=== PATIENT | male | born 1965 | race Caucasian/White ===

== ENCOUNTER 2017-03-26 09:13 | Inpatient (IN) | payer OTHER ==
[2017-03-26 11:00] VITALS: BMI 28.8
--- NOTE | 2017-03-26 13:30 | HP ---
COWS - Scale Resting Pulse: 0= [place] 80 or Below Sweatin= Chills/Flushing Restless Observation: 3= Extraneous Movement Pupil Size: 2= Moderately Dilated Bone or Joint Aches: 4=Acute Joint/Muscle Pain Runny Nose/ Eye Tearin= Nasal Congestion GI Upset > 30mins: 1= Stomach Cramp Tremor Observation: 2= Slight Tremor Visible Yawning Observation: 2= >3x During Session Anxiety or Irritability: 2=Irritable/Anxious Goose Flesh Skin: 0=Smooth Skin COWS Score: 18 Admission ROS S - HPI Chief Complaint: DETOX TX FOR HEROIN DEPENDENCE. Allergies/Adverse Reactions: Allergies Allergy/AdvReac Type Severity Reaction Status Date / Time No Known Allergies Allergy Verified 03/26/17 12:08 History of Present Illness: 51 Y/O MALE WITH A HX OF HEROIN DEPENDENCE SEEKING DETOX [place] Exam Limitations: No Limitations - Ebola screening Have you traveled outside of the country in the last 21 days: No Have you had contact with anyone from an Ebola affected area: No Have you been sick,other than usual withdrawal symptoms: No Do you have a fever: No - Review of Systems Constitutional: Chills, Loss of Appetite, Night Sweats, Unintentional Wgt. Loss EENT: reports: Blurred Vision, Tearing, Nose Congestion, Dental Problems (UPPER/ LOWER DENTURES.) Respiratory: reports: No Symptoms reported Cardiac: reports: Lightheadedness GI: reports: Constipated, Diarrhea, Nausea, Poor Appetite, Poor Fluid Intake, Vomiting : reports: Frequency Musculoskeletal: reports: Back Pain, Joint Pain, Muscle Pain Integumentary: reports: Bruising (IVD INJ SITE ON RIGHT ELBOW.), Change in Color (HEALED SKIN POP SCARS ON BOTH EXTREMITIES.) Neuro: reports: Tremors, Unsteady Gait, Dizziness Endocrine: reports: No Symptoms Reported Hematology: reports: No Symptoms Reported Psychiatric: reports: Orientated x3, Anxious, Depressed Other Systems: Reviewed and Negative Patient History - Patient Medical History Hx Anemia: No Hx Asthma: No Hx Chronic Obstructive Pulmonary Disease (COPD): Yes (SPIRIVA DAILY) Hx Cardiac Disorders: No Hx Hypertension: Yes (on meds.) Hx Hypercholesterolemia: No HX Cerebrovascular Accident: No Hx Seizures: No Hx Diabetes: No Hx Gastrointestinal Disorders: No Hx Genitourinary Disorders: No Hx Sexually Transmitted Disorders: No (DENIES) Hx Renal Disease (ESRD): No Hx Thyroid Disease: No Hx Human Immunodeficiency Virus (HIV): No (NEGATIVE HX) Hx Hepatitis C: Yes (TREATED) Hx Depression: Yes (ON MED) Hx Suicide Attempt: No (DENIES) Hx Bipolar Disorder: No Hx Schizophrenia: No - Patient Surgical History Past Surgical History: Yes Hx Abdominal Surgery: Yes (umbillical hernia repair 10 years ago) Hx Appendectomy: Yes (AT 15 Y/O) Hx Orthopedic Surgery: No Anesthesia Reaction: No - PPD History Previous Implant?: Yes Documented Results: Negative w/o proof Implanted On Prior [facility] Admission?: No PPD to be Administered?: Yes - Reproductive History Patient is a Female of Child Bearing Age (11 -55 yrs old): (MALE) Patient : (N/A) - Smoking Cessation Smoking history: Current every day smoker Have you smoked in the past 12 months: Yes Aproximately how many cigarettes per day: 20 Hx Chewing Tobacco Use: No Initiated information on smoking cessation: Yes 'Breaking Loose' booklet given: 03/26/17 - Substance & Tx. History Hx Alcohol Use: Yes (ON/OFF) Hx Substance Use: Yes (HEROIN) Substance Use Type: Alcohol, Heroin Hx Substance Use Treatment: Yes (LAST TX AT [facility].) - Substances Abused Heroin Route: Injection Frequency: Daily Amount used: 12 bags Age of first use: 14 Date of Last Use: 03/25/17 Family Disease History - Family Disease History Family History: Denies Admission Physical Exam BHS - Vital Signs Vital Signs: Vital Signs - 24 hr 03/26/17 10:58 Temperature 96.5 F L Pulse Rate 76 Respiratory 18 Rate Blood Pressure 135/76 - Physical General Appearance: Yes: Moderate Distress, Irritable, Anxious HEENTM: Yes: EOMI, Normocephalic, ALTAGRACIA, Pharynx Normal, Nasal Congestion, Rhinorrhea Respiratory: Yes: Chest Non-Tender, Lungs Clear, Normal Breath Sounds, No Respiratory Distress Neck: Yes: No masses,lesions,Nodules, Supple, Trachea in good position Breast: Yes: Breast Exam Deferred Cardiology: Yes: Regular Rhythm, Regular Rate, S1, S2 Abdominal: Yes: Normal Bowel Sounds, Non Tender, Soft Genitourinary: Yes: Other (N/C) Musculoskeletal: Yes: full range of Motion, Gait Steady Extremities: Yes: Normal Range of Motion, Non-Tender Neurological: Yes: 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-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 NML intact, Fully Oriented, Alert, Motor Strength 5/5 Integumentary: Yes: Dry, Warm, Track [place] (IVD INJ SITE RIGHT ELBOW) Lymphatic: Yes: Within Normal Limits - Diagnostic (1) Opioid dependence with withdrawal Current Visit: Yes Status: Acute (2) COPD (chronic obstructive pulmonary disease) Current Visit: Yes Status: Chronic (3) Hypertension Current Visit: Yes Status: Chronic Qualifiers: Hypertension type: essential hypertension Qualified Code(s): I10 - Essential (primary) hypertension Cleared for Admission S - Detox or Rehab [facility] Level of Care: Medically Managed Detox Regimen/Protocol: Methadone [facility] Breath Alcohol Content Breath Alcohol Content: 0 Urine Drug Screen - Results Drug Screen Negative: No Urine Drug Screen Results: OPI-Opiates
[2017-03-26] MEDS ORDERED: MAGNESIUM HYDROX 2400MG/30ML ORAL SUSPENSION 30 ML CUP PO PRN (13:41)
[2017-03-26] MEDS ORDERED: NICOTINE POLACRILEX 2 MG GUM BC PRN (13:41)
[2017-03-26] MEDS ORDERED: guaiFENesin/D-METHORPHAN HB 10 ML UNIT-DOSE CUPS PO PRN (13:41)
[2017-03-26] MEDS ORDERED: MAGNESIUM CITRATE 300 ML BOTTLE PO PRN (13:41)
[2017-03-26] MEDS ORDERED: IBUPROFEN 400 MG TABLET (FP) PO PRN (13:41)
[2017-03-26] MEDS ORDERED: P-EPHED 60MG/TRIPROLIDI 2.5MG TABLET PO PRN (13:41)
[2017-03-26] MEDS ORDERED: ACETAMINOPHEN 325 MG TABLET (FP) PO PRN (13:41)
[2017-03-26] MEDS ORDERED: MENTHOL/PHENOL 1 EACH UD MM PRN (13:41)
[2017-03-26] MEDS ORDERED: TIOTROPIUM BROMIDE 18 MCG/INH (DEVICE W/ 5 CAPSULES) IH SCH (13:45)
[2017-03-26] MEDS ORDERED: NICOTINE 14 MG/24 HOURS TOPICAL PATCH TD SCH (13:45)
[2017-03-26] MEDS ORDERED: NICOTINE POLACRILEX 2 MG GUM BUC PRN (13:47)
[2017-03-26] MEDS ORDERED: METHADONE HCL 10 MG TABLET (FOR DETOX USE ONLY) PO ONE ×2 (13:49→23:00)
[2017-03-26] MEDS: diazePAM 5 MG TABLET PO PRN ×2 (14:31→20:45)
[2017-03-26] MEDS ORDERED: ALBUTEROL SO4 6.7 GM HFA INHALER IH PRN (15:41)
[2017-03-26 21:59] LABS: URINE APPEARANCE TURBID; URINE BILIRUBIN NEGATIVE (NEGATIVE); URINE BLOOD NEGATIVE (NEGATIVE); URINE COLOR AMBER; URINE GLUCOSE (UA) NEGATIVE (NEGATIVE); URINE KETONE NEGATIVE (NEGATIVE); URINE LEUK ESTERASE NEGATIVE (NEGATIVE); URINE NITRITE NEGATIVE (NEGATIVE)
[2017-03-26 22:05] LABS: URINE PROTEIN 1+ (NEGATIVE)
[2017-03-26] MEDS: THIAMINE HCL 100 MG TABLET (FP) PO SCH (22:10)
[2017-03-26] MEDS: diphenhydrAMINE HCL 50 MG CAPSULE PO PRN (22:10)
[2017-03-26] MEDS: ACLIDINIUM BROMIDE 400 MCG/INH AERO.POWD IH SCH (22:11)
[2017-03-26 22:14] LABS: URINE BACTERIA RARE /hpf (NONE SEEN); URINE HYALINE CAST 4 /lpf; URINE MUCUS MANY; URINE RBC 3 /hpf (0-3); URINE WBC 12 /hpf (3-5)
[2017-03-27] MEDS ORDERED: TRIMETHOBENZAMIDE HCL 200MG/2ML INJ IM PRN ×2 (05:55→08:50)
[2017-03-27] MEDS: diazePAM 5 MG TABLET PO PRN ×4 (07:08→22:40)
--- NOTE | 2017-03-27 08:45 | CONSULT ---
[facility] Psychiatric Consult - Data Date of interview: 03/27/17 Admission source: [facility] Identifying data: This is a 51 year old male, domiciled, employed Substance Abuse History: Patient reports started heroin at age of 14, daily injecting 10-15 bags, smokes cigarettes 20 a day. Treatment at [facility]. Medical History: HTN, Hep C, COPD, emphysema,umbillical hernia repair 10 years ago, appendectomy. Psychiatric History: Patient reports history of depression, anxiety and sees the psychiatrist who Rx Zoloft 100 mg po daily, patient at present time does no feel well, he is acutely withdrawing, he was in bed throwing, sweating and the writter was not able to continue evaluatiion, due to this Zoloft not recommended and he will restart when feels better. Patient agreed with careplan. Mental Status Exam - Mental Status Exam Alert and Oriented to: Place, Person Cognitive Function: Grossly Intact Patient Appearance: Well Groomed Mood: Anxious Affect: Mood Congruent Patient Behavior: Appropriate, Cooperative Speech Pattern: Appropriate Voice Loudness: Normal Thought Process: Intact Thought Disorder: Not Present Hallucinations: Denies Suicidal Ideation: Denies Homicidal Ideation: Denies Insight/Judgement: Fair Sleep: Fair Appetite: Fair Muscle strength/Tone: Normal Gait/Station: Normal Psychiatric Findings - Problem List ([place] 1, 2,3) (1) Depressive disorder Current Visit: Yes Status: Acute - Initial Treatment Plan Initial Treatment Plan: will continue detox. protocol, please call for consult when patient feels better.
[2017-03-27] MEDS ORDERED: METHADONE DETOX 10 MG/1 ML [20ML VIAL] IM ONE (09:00)
[2017-03-27] MEDS ORDERED: METHADONE HCL 10 MG TABLET (FOR DETOX USE ONLY) PO ONE (10:00)
[2017-03-27 10:36] LABS: MCH 31.2 pg (25.7-33.7); MCHC 33.9 g/dl (32.0-35.9); MEAN PLT VOLUME 7.9 fl (7.5-11.1); PLATELET COUNT 312 K/MM3 (134-434); RDW 13.9 % (11.9-15.9); WHITE BLOOD COUNT 8.2 K/mm3 (4.0-10.0)
[2017-03-27 10:45] LABS: ANION GAP 5 (8-16); BILIRUBIN,TOTAL 0.6 mg/dL (0.2-1.0); CALCIUM 9.2 mg/dL (8.5-10.1); CO2 34 mmol/L (21-32); CREATININE 0.9 mg/dL (0.7-1.3); GLUCOSE,RANDOM 94 mg/dL (74-106); SGOT/AST 30 U/L (15-37); SGPT/ALT 29 U/L (12-78); TOT PROT 6.4 g/dl (6.4-8.2)
[2017-03-27 10:46] LABS: ALK PHOS 115 U/L (45-117)
[2017-03-27] MEDS: PRENATAL VITAMINS W/ FOLIC ACID TABLET (FP) PO SCH (12:01)
[2017-03-27] MEDS: NICOTINE 14 MG/24 HOURS TOPICAL PATCH TD SCH (12:01)
[2017-03-27] MEDS: ACLIDINIUM BROMIDE 400 MCG/INH AERO.POWD IH SCH ×2 (12:01→22:40)
[2017-03-27] MEDS: LOSARTAN POTASSIUM 50 MG TABLET (FP) PO SCH (13:40)
[2017-03-27] MEDS: MAG HYDROX/AL HYDROX/SIMETH 30 ML UNIT-DOSE CUP PO PRN (15:54)
--- NOTE | 2017-03-27 16:09 | PN ---
BHS COWS - Scale Resting Pulse: 0= [place] 80 or Below Sweatin=Flushed/Facial Moisture Restless Observation: 1= Difficult to Sit Still Pupil Size: 0= Normal to Room Light Bone or Joint Aches: 2= Severe Diffuse Aches Runny Nose/ Eye Tearin= Runny Nose/Eyes GI Upset > 30mins: 5=Frequent Vomit/Diarrhea Tremor Observation of Outstretched Hands: 2= Slight Tremor Visible Yawning Observation: 0= None Anxiety or Irritability: 4=Extreme Anxiety Goose Flesh Skin: 0=Smooth Skin COWS Score: 18 BHS Progress Note (SOAP) Subjective: Vomiting, Stomach Cramping, Diarrhea, Interrupted sleep, Body Aches. Objective: PT. A & O X 3, OBSERVED AMBULATING ON UNIT. PT. DENIES CHEST PAIN. 03/27/17 16:08 Vital Signs Temperature 96.7 F L 03/27/17 13:51 Pulse Rate 60 03/27/17 13:51 Respiratory Rate 18 03/27/17 13:51 Blood Pressure 158/84 03/27/17 13:51 O2 Sat by Pulse Oximetry (%) Laboratory Tests 03/26/17 03/27/17 03/27/17 21:00 06:15 06:15 WBC 8.2 RBC 3.92 L Hgb 12.2 Hct 36.0 MCV 92.0 MCH 31.2 MCHC 33.9 RDW 13.9 Plt Count 312 MPV 7.9 Sodium 137 Potassium 3.3 L Chloride 98 Carbon Dioxide 34 H Anion Gap 5 L BUN 18 Creatinine 0.9 Creat Clearance w eGFR > 60 Random Glucose 94 Calcium 9.2 Total Bilirubin 0.6 AST 30 ALT 29 Alkaline Phosphatase 115 Total Protein 6.4 Albumin 3.0 L Urine Color [place] Urine Appearance Turbid Urine pH 5.0 Ur Specific [place] 1.020 Urine Protein 1+ H Urine Glucose (UA) Negative Urine Ketones Negative Urine Blood Negative Urine Nitrite Negative Urine Bilirubin Negative Urine Urobilinogen 2.0 Ur Leukocyte Esterase Negative Urine RBC 3 Urine WBC 12 Ur Epithelial Cells Rare Urine Bacteria Rare Hyaline Casts 4 Urine Mucus Many RPR Titer 03/27/17 06:15 WBC RBC Hgb Hct MCV MCH MCHC RDW Plt Count MPV Sodium Potassium Chloride Carbon Dioxide Anion Gap BUN Creatinine Creat Clearance w eGFR Random Glucose Calcium Total Bilirubin AST ALT Alkaline Phosphatase Total Protein Albumin Urine Color Urine Appearance Urine pH Ur Specific [place] Urine Protein Urine Glucose (UA) Urine Ketones Urine Blood Urine Nitrite Urine Bilirubin Urine Urobilinogen Ur Leukocyte Esterase Urine RBC Urine WBC Ur Epithelial Cells Urine Bacteria Hyaline Casts Urine Mucus RPR Titer Nonreactive LABS NOTED. Assessment: 03/27/17 16:08 WITHDRAWAL SYMPTOMS. Plan: CONTINUE DETOX. K, LIQUID FORM, 20 MEQ PO X 1 NOW, THEN PO BID AFTER. THIS AM'S DOSE OF METHADONE (DETOX) ADMINISTERED IN IM FORM DUE TO FREQUENT VOMITING. PRN TIGAN IM FOR NAUSEA/ VOMITING.
[2017-03-27] MEDS ORDERED: POTASSIUM CHLORIDE TABS 20 MEQ TABLET.ER (FP) PO ONE (16:10)
[2017-03-27] MEDS: diphenhydrAMINE HCL 50 MG CAPSULE PO PRN (22:40)
[2017-03-27] MEDS: POTASSIUM CHLORIDE ORAL LIQUID 20 MEQ/15 ML PO SCH (22:40)
[2017-03-27] MEDS: THIAMINE HCL 100 MG TABLET (FP) PO SCH (22:40)
[2017-03-27] MEDS: LOPERAMIDE HCL 2 MG CAPSULE PO PRN (23:01)
[2017-03-28] MEDS: diazePAM 5 MG TABLET PO PRN ×4 (06:08→22:25)
[2017-03-28] MEDS ORDERED: METHADONE HCL 5 MG TABLET (FOR DETOX USE ONLY) PO ONE (10:00)
[2017-03-28] MEDS: PRENATAL VITAMINS W/ FOLIC ACID TABLET (FP) PO SCH (10:36)
[2017-03-28] MEDS: NICOTINE 14 MG/24 HOURS TOPICAL PATCH TD SCH (10:37)
[2017-03-28] MEDS: LOSARTAN POTASSIUM 50 MG TABLET (FP) PO SCH (10:38)
[2017-03-28] MEDS: ACLIDINIUM BROMIDE 400 MCG/INH AERO.POWD IH SCH ×2 (10:39→22:25)
[2017-03-28] MEDS: LOPERAMIDE HCL 2 MG CAPSULE PO PRN (10:43)
[2017-03-28] MEDS ORDERED: ONDANSETRON *ODT* 4 MG TABLET SL ONE (11:35)
[2017-03-28] MEDS: POTASSIUM CHLORIDE ORAL LIQUID 20 MEQ/15 ML PO SCH ×2 (14:06→22:26)
--- NOTE | 2017-03-28 14:56 | PN ---
S COWS - Scale Resting Pulse: 0= [place] 80 or Below Sweatin= Chills/Flushing Restless Observation: 3= Extraneous Movement Pupil Size: 1= Pupils >than Normal Bone or Joint Aches: 2= Severe Diffuse Aches Runny Nose/ Eye Tearin= Runny Nose/Eyes GI Upset > 30mins: 2= Nausea/Diarrhea Tremor Observation of Outstretched Hands: 2= Slight Tremor Visible Yawning Observation: 1= 1-2x During Session Anxiety or Irritability: 2=Irritable/Anxious Goose Flesh Skin: 0=Smooth Skin COWS Score: 16 S Progress Note (SOAP) Subjective: Nausea, diarrhea, interrupted sleep, anxious, sweating Objective: 03/28/17 14:53 Last Vital Signs Temp Pulse Resp BP Pulse Ox 98.4 F 71 18 157/91 03/28/17 13:46 03/28/17 13:46 03/28/17 13:46 03/28/17 13:46 Laboratory Tests 03/26/17 03/27/17 03/27/17 21:00 06:15 06:15 WBC 8.2 RBC 3.92 L Hgb 12.2 Hct 36.0 MCV 92.0 MCH 31.2 MCHC 33.9 RDW 13.9 Plt Count 312 MPV 7.9 Sodium 137 Potassium 3.3 L Chloride 98 Carbon Dioxide 34 H Anion Gap 5 L BUN 18 Creatinine 0.9 Creat Clearance w eGFR > 60 Random Glucose 94 Calcium 9.2 Total Bilirubin 0.6 AST 30 ALT 29 Alkaline Phosphatase 115 Total Protein 6.4 Albumin 3.0 L Urine Color [place] Urine Appearance Turbid Urine pH 5.0 Ur Specific [place] 1.020 Urine Protein 1+ H Urine Glucose (UA) Negative Urine Ketones Negative Urine Blood Negative Urine Nitrite Negative Urine Bilirubin Negative Urine Urobilinogen 2.0 Ur Leukocyte Esterase Negative Urine RBC 3 Urine WBC 12 Ur Epithelial Cells Rare Urine Bacteria Rare Hyaline Casts 4 Urine Mucus Many RPR Titer 03/27/17 06:15 WBC RBC Hgb Hct MCV MCH MCHC RDW Plt Count MPV Sodium Potassium Chloride Carbon Dioxide Anion Gap BUN Creatinine Creat Clearance w eGFR Random Glucose Calcium Total Bilirubin AST ALT Alkaline Phosphatase Total Protein Albumin Urine Color Urine Appearance Urine pH Ur Specific [place] Urine Protein Urine Glucose (UA) Urine Ketones Urine Blood Urine Nitrite Urine Bilirubin Urine Urobilinogen Ur Leukocyte Esterase Urine RBC Urine WBC Ur Epithelial Cells Urine Bacteria Hyaline Casts Urine Mucus RPR Titer Nonreactive Labs noted: K 3.3, abnormal UA Assessment: 03/28/17 14:54 Withdrawal symptoms Noted with hypokalemia and abnormal UA Plan: Continue detox Hypokalemia: continue K DUR, repeat BMP Abnormal UA: encouraged to drink lots of water, repeat UA
[2017-03-28] MEDS ORDERED: ONDANSETRON *ODT* 4 MG TABLET SL PRN (18:00)
[2017-03-28] MEDS: THIAMINE HCL 100 MG TABLET (FP) PO SCH (22:25)
[2017-03-28] MEDS: diphenhydrAMINE HCL 50 MG CAPSULE PO PRN (22:26)
[2017-03-29] MEDS: diazePAM 5 MG TABLET PO PRN ×2 (05:45→10:28)
[2017-03-29 09:56] LABS: ANION GAP 4 (8-16); CALCIUM 8.8 mg/dL (8.5-10.1); CO2 33 mmol/L (21-32); GLUCOSE,RANDOM 104 mg/dL (74-106)
[2017-03-29 09:59] LABS: CREATININE 0.8 mg/dL (0.7-1.3)
[2017-03-29] MEDS ORDERED: METHADONE HCL 5 MG TABLET (FOR DETOX USE ONLY) PO ONE (10:00)
--- NOTE | 2017-03-29 10:00 | EKG ---
Test Reason : Blood Pressure : / mmHG Vent. Rate : 071 BPM Atrial Rate : 071 BPM P-R Int : 176 ms QRS Dur : 116 ms QT Int : 450 ms P-R-T Axes : 070 077 029 degrees QTc Int : 489 ms NORMAL SINUS RHYTHM POSSIBLE LEFT ATRIAL ENLARGEMENT INCOMPLETE RIGHT BUNDLE BRANCH BLOCK T WAVE ABNORMALITY, CONSIDER ANTERIOR ISCHEMIA ABNORMAL ECG NO PREVIOUS ECGS AVAILABLE Confirmed by SREEDHAR CASTRO MD ([id number]) on 03/29/2017 9:59:47 AM Referred By: Confirmed By:SREEDHAR CASTRO MD
[2017-03-29] MEDS: PRENATAL VITAMINS W/ FOLIC ACID TABLET (FP) PO SCH (10:25)
[2017-03-29] MEDS: ACLIDINIUM BROMIDE 400 MCG/INH AERO.POWD IH SCH ×2 (10:26→22:25)
[2017-03-29] MEDS: LOSARTAN POTASSIUM 50 MG TABLET (FP) PO SCH (10:28)
[2017-03-29] MEDS: POTASSIUM CHLORIDE ORAL LIQUID 20 MEQ/15 ML PO SCH ×2 (10:28→22:24)
[2017-03-29] MEDS: NICOTINE 14 MG/24 HOURS TOPICAL PATCH TD SCH (10:28)
--- NOTE | 2017-03-29 14:36 | PN ---
BHS Progress Note (SOAP) Subjective: Sweating,interrupted sleep,restless Objective: 03/29/17 14:35 Vital Signs - 8 hr 03/29/17 03/29/17 03/29/17 07:35 09:26 13:25 Temperature 98.0 F 97.6 F Pulse Rate 62 94 H 62 Respiratory 16 16 Rate Blood Pressure 161/97 163/95 158/84 Laboratory Last Values WBC 8.2 K/mm3 (4.0-10.0) 03/27/17 06:15 RBC 3.92 M/mm3 (4.00-5.60) L 03/27/17 06:15 Hgb 12.2 GM/dL (11.7-16.9) 03/27/17 06:15 Hct 36.0 % (35.4-49) 03/27/17 06:15 MCV 92.0 fl (80-96) 03/27/17 06:15 MCH 31.2 pg (25.7-33.7) 03/27/17 06:15 MCHC 33.9 g/dl (32.0-35.9) 03/27/17 06:15 RDW 13.9 % (11.9-15.9) 03/27/17 06:15 Plt Count 312 K/MM3 (134-434) 03/27/17 06:15 MPV 7.9 fl (7.5-11.1) 03/27/17 06:15 Sodium 137 mmol/L (136-145) 03/29/17 06:30 Potassium 3.8 mmol/L (3.5-5.1) 03/29/17 06:30 Chloride 100 mmol/L (98-107) 03/29/17 06:30 Carbon Dioxide 33 mmol/L (21-32) H 03/29/17 06:30 Anion Gap 4 (8-16) L 03/29/17 06:30 BUN 15 mg/dL (7-18) 03/29/17 06:30 Creatinine 0.8 mg/dL (0.7-1.3) 03/29/17 06:30 Creat Clearance w eGFR > 60 (>60) 03/27/17 06:15 Random Glucose 104 mg/dL (74-106) 03/29/17 06:30 Calcium 8.8 mg/dL (8.5-10.1) 03/29/17 06:30 Total Bilirubin 0.6 mg/dL (0.2-1.0) 03/27/17 06:15 AST 30 U/L (15-37) 03/27/17 06:15 ALT 29 U/L (12-78) 03/27/17 06:15 Alkaline Phosphatase 115 U/L (45-117) 03/27/17 06:15 Total Protein 6.4 g/dl (6.4-8.2) 03/27/17 06:15 Albumin 3.0 g/dl (3.4-5.0) L 03/27/17 06:15 Urine Color [place] 03/26/17 21:00 Urine Appearance Turbid 03/26/17 21:00 Urine pH 5.0 (5.0-8.0) 03/26/17 21:00 Ur Specific [place] 1.020 (1.005-1.025) 03/26/17 21:00 Urine Protein 1+ (NEGATIVE) H 03/26/17 21:00 Urine Glucose (UA) Negative (NEGATIVE) 03/26/17 21:00 Urine Ketones Negative (NEGATIVE) 03/26/17 21:00 Urine Blood Negative (NEGATIVE) 03/26/17 21:00 Urine Nitrite Negative (NEGATIVE) 03/26/17 21:00 Urine Bilirubin Negative (NEGATIVE) 03/26/17 21:00 Urine Urobilinogen 2.0 mg/dL (0.2-1.0) 03/26/17 21:00 Ur Leukocyte Esterase Negative (NEGATIVE) 03/26/17 21:00 Urine RBC 3 /hpf (0-3) 03/26/17 21:00 Urine WBC 12 /hpf (3-5) 03/26/17 21:00 Ur Epithelial Cells Rare /hpf (FEW) 03/26/17 21:00 Urine Bacteria Rare /hpf (NONE SEEN) 03/26/17 21:00 Hyaline Casts 4 /lpf 03/26/17 21:00 Urine Mucus Many 03/26/17 21:00 RPR Titer Nonreactive (NONREACTIVE) 03/27/17 06:15 labs noted Assessment: 03/29/17 14:36 Withdrawal sx. Plan: Continue detox
[2017-03-29 17:08] LABS: URINE APPEARANCE CLEAR; URINE BILIRUBIN NEGATIVE (NEGATIVE); URINE BLOOD NEGATIVE (NEGATIVE); URINE COLOR YELLOW; URINE GLUCOSE (UA) NEGATIVE (NEGATIVE); URINE KETONE NEGATIVE (NEGATIVE); URINE LEUK ESTERASE NEGATIVE (NEGATIVE); URINE NITRITE NEGATIVE (NEGATIVE); URINE PROTEIN NEGATIVE (NEGATIVE)
[2017-03-29] MEDS: cloNIDine HCL 0.1 MG TABLET PO PRN (20:15)
[2017-03-29] MEDS: hydrOXYzine PAMOATE 50 MG CAPSULE (FP) PO PRN (20:15)
[2017-03-29] MEDS: THIAMINE HCL 100 MG TABLET (FP) PO SCH (22:24)
[2017-03-29] MEDS: diphenhydrAMINE HCL 50 MG CAPSULE PO PRN (22:24)
[2017-03-30] MEDS: hydrOXYzine PAMOATE 50 MG CAPSULE (FP) PO PRN (05:44)
[2017-03-30] MEDS: cloNIDine HCL 0.1 MG TABLET PO PRN (05:44)
[2017-03-30] MEDS: PRENATAL VITAMINS W/ FOLIC ACID TABLET (FP) PO SCH (09:49)
[2017-03-30] MEDS: NICOTINE 14 MG/24 HOURS TOPICAL PATCH TD SCH (09:49)
[2017-03-30] MEDS: POTASSIUM CHLORIDE ORAL LIQUID 20 MEQ/15 ML PO SCH ×2 (09:49→22:09)
[2017-03-30] MEDS: LOSARTAN POTASSIUM 50 MG TABLET (FP) PO SCH (09:49)
[2017-03-30] MEDS: ACLIDINIUM BROMIDE 400 MCG/INH AERO.POWD IH SCH ×2 (09:50→22:09)
[2017-03-30] MEDS ORDERED: METHADONE HCL 10 MG TABLET (FOR DETOX USE ONLY) PO ONE (10:00)
--- NOTE | 2017-03-30 11:06 | PN ---
BHS Progress Note (SOAP) Subjective: Sweating,interrupted sleep,restless Objective: 03/30/17 11:00 Vital Signs - 8 hr 03/30/17 03/30/17 03/30/17 03:30 06:13 10:01 Temperature 97 F L 96.4 F L Pulse Rate 56 L 67 Respiratory 18 18 20 Rate Blood Pressure 158/94 125/84 Laboratory Last Values WBC 8.2 K/mm3 (4.0-10.0) 03/27/17 06:15 RBC 3.92 M/mm3 (4.00-5.60) L 03/27/17 06:15 Hgb 12.2 GM/dL (11.7-16.9) 03/27/17 06:15 Hct 36.0 % (35.4-49) 03/27/17 06:15 MCV 92.0 fl (80-96) 03/27/17 06:15 MCH 31.2 pg (25.7-33.7) 03/27/17 06:15 MCHC 33.9 g/dl (32.0-35.9) 03/27/17 06:15 RDW 13.9 % (11.9-15.9) 03/27/17 06:15 Plt Count 312 K/MM3 (134-434) 03/27/17 06:15 MPV 7.9 fl (7.5-11.1) 03/27/17 06:15 Sodium 137 mmol/L (136-145) 03/29/17 06:30 Potassium 3.8 mmol/L (3.5-5.1) 03/29/17 06:30 Chloride 100 mmol/L (98-107) 03/29/17 06:30 Carbon Dioxide 33 mmol/L (21-32) H 03/29/17 06:30 Anion Gap 4 (8-16) L 03/29/17 06:30 BUN 15 mg/dL (7-18) 03/29/17 06:30 Creatinine 0.8 mg/dL (0.7-1.3) 03/29/17 06:30 Creat Clearance w eGFR > 60 (>60) 03/27/17 06:15 Random Glucose 104 mg/dL (74-106) 03/29/17 06:30 Calcium 8.8 mg/dL (8.5-10.1) 03/29/17 06:30 Total Bilirubin 0.6 mg/dL (0.2-1.0) 03/27/17 06:15 AST 30 U/L (15-37) 03/27/17 06:15 ALT 29 U/L (12-78) 03/27/17 06:15 Alkaline Phosphatase 115 U/L (45-117) 03/27/17 06:15 Total Protein 6.4 g/dl (6.4-8.2) 03/27/17 06:15 Albumin 3.0 g/dl (3.4-5.0) L 03/27/17 06:15 Urine Color Yellow 03/29/17 13:27 Urine Appearance Clear 03/29/17 13:27 Urine pH 8.0 (5.0-8.0) D 03/29/17 13:27 Ur Specific [place] 1.015 (1.005-1.025) 03/29/17 13:27 Urine Protein Negative (NEGATIVE) 03/29/17 13:27 Urine Glucose (UA) Negative (NEGATIVE) 03/29/17 13:27 Urine Ketones Negative (NEGATIVE) 03/29/17 13:27 Urine Blood Negative (NEGATIVE) 03/29/17 13:27 Urine Nitrite Negative (NEGATIVE) 03/29/17 13:27 Urine Bilirubin Negative (NEGATIVE) 03/29/17 13:27 Urine Urobilinogen 2.0 mg/dL (0.2-1.0) 03/29/17 13:27 Ur Leukocyte Esterase Negative (NEGATIVE) 03/29/17 13:27 Urine RBC 3 /hpf (0-3) 03/26/17 21:00 Urine WBC 12 /hpf (3-5) 03/26/17 21:00 Ur Epithelial Cells Rare /hpf (FEW) 03/26/17 21:00 Urine Bacteria Rare /hpf (NONE SEEN) 03/26/17 21:00 Hyaline Casts 4 /lpf 03/26/17 21:00 Urine Mucus Many 03/26/17 21:00 RPR Titer Nonreactive (NONREACTIVE) 03/27/17 06:15 labs noted Assessment: 03/30/17 11:06 Withdrawal sx. Plan: Continue detox
[2017-03-30] MEDS: THIAMINE HCL 100 MG TABLET (FP) PO SCH (22:09)
[2017-03-30] MEDS: diphenhydrAMINE HCL 50 MG CAPSULE PO PRN (22:09)
[2017-03-31] MEDS: cloNIDine HCL 0.1 MG TABLET PO PRN (05:51)
[2017-03-31] MEDS ORDERED: METHADONE HCL 5 MG TABLET (FOR DETOX USE ONLY) PO ONE (06:00)
[2017-03-31 06:48] VITALS: TEMP 97.8
[2017-03-31] MEDS: MAG HYDROX/AL HYDROX/SIMETH 30 ML UNIT-DOSE CUP PO PRN (07:00)
[2017-03-31 07:04] VITALS: BP 133/83; PULSE 49
--- NOTE | 2017-03-31 12:06 | DS ---
[facility] Detox Discharge Summary Admission Date: 03/26/17 Discharge Date: 03/31/17 - History Present History: Opioid Dependence Additional Comments: PATIENT ELECTING TO GO HOME SO THAT HE CAN RETURN TO WORK. OUTPATIENT 12-STEP / NA OUTPATIENT PROGRAMS RECOMMENDED TO PATIENT FOR AFTERCARE. Pertinent Past History: HTN, Depression, Hep C (Treated). - Physical Exam Results Vital Signs: Vital Signs Temperature 97.8 F 03/31/17 06:47 Pulse Rate 49 L 03/31/17 07:03 Respiratory Rate 18 03/31/17 07:03 Blood Pressure 133/83 03/31/17 07:03 O2 Sat by Pulse Oximetry (%) Pertinent Admission Physical Exam Findings: WITHDRAWAL SYMPTOMS. Laboratory Tests 03/26/17 03/27/17 03/27/17 21:00 06:15 06:15 WBC 8.2 RBC 3.92 L Hgb 12.2 Hct 36.0 MCV 92.0 MCH 31.2 MCHC 33.9 RDW 13.9 Plt Count 312 MPV 7.9 Sodium 137 Potassium 3.3 L Chloride 98 Carbon Dioxide 34 H Anion Gap 5 L BUN 18 Creatinine 0.9 Creat Clearance w eGFR > 60 Random Glucose 94 Calcium 9.2 Total Bilirubin 0.6 AST 30 ALT 29 Alkaline Phosphatase 115 Total Protein 6.4 Albumin 3.0 L Urine Color [place] Urine Appearance Turbid Urine pH 5.0 Ur Specific [place] 1.020 Urine Protein 1+ H Urine Glucose (UA) Negative Urine Ketones Negative Urine Blood Negative Urine Nitrite Negative Urine Bilirubin Negative Urine Urobilinogen 2.0 Ur Leukocyte Esterase Negative Urine RBC 3 Urine WBC 12 Ur Epithelial Cells Rare Urine Bacteria Rare Hyaline Casts 4 Urine Mucus Many RPR Titer 03/27/17 03/29/17 03/29/17 06:15 06:30 13:27 WBC RBC Hgb Hct MCV MCH MCHC RDW Plt Count MPV Sodium 137 Potassium 3.8 Chloride 100 Carbon Dioxide 33 H Anion Gap 4 L BUN 15 Creatinine 0.8 Creat Clearance w eGFR Random Glucose 104 Calcium 8.8 Total Bilirubin AST ALT Alkaline Phosphatase Total Protein Albumin Urine Color Yellow Urine Appearance Clear Urine pH 8.0 D Ur Specific [place] 1.015 Urine Protein Negative Urine Glucose (UA) Negative Urine Ketones Negative Urine Blood Negative Urine Nitrite Negative Urine Bilirubin Negative Urine Urobilinogen 2.0 Ur Leukocyte Esterase Negative Urine RBC Urine WBC Ur Epithelial Cells Urine Bacteria Hyaline Casts Urine Mucus RPR Titer Nonreactive LABS NOTED. - Treatment Hospital Course: Detox Protocol Followed, Detoxed Safely, Responded well, Discharged Condition Good Patient has Accepted a Rehab Referral to: PATIENT TO GO HOME TO RETURN TO WORK. 12-STEP/NA PROGRAMS RECOMMENDED. - Medication Discharge Medications: Ambulatory Orders Losartan Potassium [Cozaar] 100 mg PO DAILY 03/26/17 Sertraline HCl [Zoloft -] 50 mg PO DAILY 03/26/17 Tiotropium [facility] [Spiriva] 1 inh IH DAILY 03/26/17 - Diagnosis (1) Depressive disorder Status: Acute (2) Opioid dependence with withdrawal Status: Acute (3) COPD (chronic obstructive pulmonary disease) Status: Chronic Qualifiers: COPD type: unspecified COPD Qualified Code(s): J44.9 - Chronic obstructive pulmonary disease, unspecified (4) Hypertension Status: Chronic Qualifiers: Hypertension type: essential hypertension Qualified Code(s): I10 - Essential (primary) hypertension - AMA Did Patient Leave Against Medical Advice: No
== END 2017-03-31 07:00 | disposition home or self-care (01) | DRG 773 ==
LOC: YASAS 09:13 → Y3N 13:04
PROVIDERS: ADMIT Internal Medicine; ATTEND Surgery
PROC: HZ2ZZZZ Detoxification Services for Substance Abuse Treatment (ICD-10-PCS; principal; 2017-03-26)
DX: F11.23 Opioid dependence with withdrawal (principal); F17.210 Nicotine dependence, cigarettes, uncomplicated; F32.9 Major depressive disorder, single episode, unspecified; I10 Essential (primary) hypertension; J44.9 Chronic obstructive pulmonary disease, unspecified; E87.6 Hypokalemia; R82.90 Unspecified abnormal findings in urine; B18.2 Chronic viral hepatitis C
CPT/HCPCS: 36415; 80048; 80053; 81003; 81015; 85027; 86593; 93005; 93010

== ENCOUNTER 2020-10-04 15:33 | Inpatient (IN) | payer OTHER ==
[2020-10-04 16:36] VITALS: BMI 26.4
[2020-10-04] MEDS ORDERED: METHOCARBAMOL 500 MG TABLET PO PRN (20:53)
[2020-10-04] MEDS ORDERED: IBUPROFEN 400 MG TABLET (FP) PO PRN (20:53)
[2020-10-04] MEDS ORDERED: chlordiazePOXIDE HCL 25 MG CAPSULE PO PRN (20:53)
[2020-10-04] MEDS ORDERED: MAG HYDROX/AL HYDROX/SIMETH 30 ML UNIT-DOSE CUP PO PRN (20:53)
[2020-10-04] MEDS ORDERED: ONDANSETRON *ODT* 4 MG TABLET SL PRN (20:53)
[2020-10-04] MEDS ORDERED: MAGNESIUM HYDROX 2400MG/30ML ORAL SUSPENSION 30 ML CUP PO PRN (20:53)
[2020-10-04] MEDS ORDERED: chlordiazePOXIDE HCL 25 MG CAPSULE PO ONE (20:53)
[2020-10-04] MEDS ORDERED: MENTHOL/PHENOL 1 EACH UD MM PRN (20:53)
[2020-10-04] MEDS ORDERED: NICOTINE POLACRILEX 2 MG GUM BUC PRN (20:53)
[2020-10-04] MEDS ORDERED: MAGNESIUM CITRATE 300 ML BOTTLE PO PRN (20:53)
[2020-10-04] MEDS ORDERED: BISMUTH SUBSALICYLATE 524 MG/30 ML UD PO PRN (20:53)
[2020-10-04] MEDS ORDERED: ACETAMINOPHEN 325 MG TABLET (FP) PO PRN (20:53)
[2020-10-04] MEDS ORDERED: guaiFENesin 200 MG/10 ML 10 ML UNIT-DOSE CUPS PO PRN (20:53)
[2020-10-04] MEDS: THIAMINE HCL 100 MG TABLET (FP) PO SCH (22:12)
[2020-10-04] MEDS: chlordiazePOXIDE HCL 25 MG CAPSULE PO SCH (22:12)
[2020-10-04] MEDS: MELATONIN 5 MG TABLETS PO SCH (22:12)
[2020-10-04] MEDS: BACITRACIN 15 GM TUBE TOPICAL OINTMENT TP SCH (23:19)
[2020-10-05] MEDS: chlordiazePOXIDE HCL 25 MG CAPSULE PO SCH ×4 (05:09→23:11)
[2020-10-05] MEDS ORDERED: METHADONE HCL 10 MG TABLET PO SCH (07:45)
[2020-10-05 10:27] LABS: HEMATOCRIT 35.5 % (35.4-49); HEMOGLOBIN 12.1 GM/dL (11.7-16.9); MCH 30.5 pg (25.7-33.7); MEAN CELL VOLUME 89.8 fl (80-96); MEAN PLT VOLUME 8.2 fl (7.5-11.1); PLATELET COUNT 271 K/MM3 (134-434); RBC 3.96 M/mm3 (4.00-5.60); RDW 14.7 % (11.9-15.9); WHITE BLOOD COUNT 6.1 K/mm3 (4.0-10.0)
[2020-10-05] MEDS ORDERED: METHADONE HCL 40 MG DISPERSABLE TABLET ONE (10:31)
[2020-10-05] MEDS ORDERED: METHADONE HCL 10 MG TABLET ONE (10:31)
[2020-10-05] MEDS: METHADONE 40 MG, METHADONE 30 MG PO SCH (10:31)
[2020-10-05] MEDS: PRENATAL VITAMINS W/ FOLIC ACID TABLET (FP) PO SCH (10:32)
[2020-10-05] MEDS: BACITRACIN 15 GM TUBE TOPICAL OINTMENT TP SCH ×2 (10:35→23:12)
[2020-10-05] MEDS: NICOTINE 21 MG/24 HOURS TOPICAL PATCH TD SCH (10:35)
[2020-10-05 10:56] LABS: POTASSIUM 4.4 mmol/L (3.5-5.1)
[2020-10-05 10:58] LABS: ALBUMIN 3.2 g/dl (3.4-5.0); BLOOD UREA NITROGEN 14.7 mg/dL (7-18); CALCIUM 8.6 mg/dL (8.5-10.1)
[2020-10-05 11:02] LABS: CREATININE 0.8 mg/dL (0.55-1.3)
[2020-10-05 11:03] LABS: BILIRUBIN,TOTAL 0.7 mg/dL (0.2-1); TOT PROT 7.2 g/dl (6.4-8.2)
[2020-10-05] MEDS: ACETAMINOPHEN 325 MG TABLET (FP) PO PRN (18:30)
[2020-10-05] MEDS: traZODone HCL 50 MG TABLET (FP) PO SCH (23:11)
[2020-10-05] MEDS: THIAMINE HCL 100 MG TABLET (FP) PO SCH (23:11)
[2020-10-05] MEDS: MELATONIN 5 MG TABLETS PO SCH (23:12)
[2020-10-06 00:06] LABS: PH,URINE 6.5 (5.0-8.0); URINE APPEARANCE CLEAR; URINE BILIRUBIN NEGATIVE (NEGATIVE); URINE COLOR YELLOW; URINE GLUCOSE (UA) NEGATIVE (NEGATIVE); URINE KETONE NEGATIVE (NEGATIVE); URINE LEUK ESTERASE NEGATIVE (NEGATIVE); URINE NITRITE NEGATIVE (NEGATIVE); URINE PROTEIN NEGATIVE (NEGATIVE); URINE UROBILINOGEN 0.2 mg/dL (0.2-1.0)
[2020-10-06] MEDS ORDERED: METHADONE HCL 10 MG TABLET ONE (04:06)
[2020-10-06] MEDS ORDERED: METHADONE HCL 40 MG DISPERSABLE TABLET ONE (04:06)
[2020-10-06] MEDS: METHADONE 40 MG, METHADONE 30 MG PO SCH (06:38)
[2020-10-06] MEDS: chlordiazePOXIDE HCL 25 MG CAPSULE PO SCH ×4 (06:39→22:00)
[2020-10-06] MEDS: PRENATAL VITAMINS W/ FOLIC ACID TABLET (FP) PO SCH (10:53)
[2020-10-06] MEDS: ACETAMINOPHEN 325 MG TABLET (FP) PO PRN ×2 (10:54→17:40)
[2020-10-06] MEDS: NICOTINE 21 MG/24 HOURS TOPICAL PATCH TD SCH (11:17)
[2020-10-06] MEDS: BACITRACIN 15 GM TUBE TOPICAL OINTMENT TP SCH ×2 (11:17→22:00)
[2020-10-06] MEDS: THIAMINE HCL 100 MG TABLET (FP) PO SCH (21:59)
[2020-10-06] MEDS: traZODone HCL 50 MG TABLET (FP) PO SCH (22:00)
[2020-10-06] MEDS: MELATONIN 5 MG TABLETS PO SCH (22:00)
[2020-10-07] MEDS ORDERED: chlordiazePOXIDE HCL 10 MG CAPSULE PO PRN
[2020-10-07] MEDS ORDERED: METHADONE HCL 40 MG DISPERSABLE TABLET ONE (03:11)
[2020-10-07] MEDS ORDERED: METHADONE HCL 10 MG TABLET ONE (03:11)
[2020-10-07] MEDS: METHADONE 40 MG, METHADONE 30 MG PO SCH (06:02)
[2020-10-07] MEDS: chlordiazePOXIDE HCL 10 MG CAPSULE PO SCH ×4 (06:02→22:47)
[2020-10-07] MEDS: PRENATAL VITAMINS W/ FOLIC ACID TABLET (FP) PO SCH (11:24)
[2020-10-07] MEDS: CEPHALEXIN MONOHYDRATE 500 MG CAPSULE (UD) PO SCH ×3 (11:25→23:07)
[2020-10-07] MEDS: BACITRACIN 15 GM TUBE TOPICAL OINTMENT TP SCH ×2 (11:26→22:48)
[2020-10-07] MEDS: NICOTINE 21 MG/24 HOURS TOPICAL PATCH TD SCH (11:26)
[2020-10-07] MEDS ORDERED: FLU VACCINE (FLULAVAL) PF 60 MCG/0.5 ML SYRINGE 2020-2021 IM ONE (12:00)
[2020-10-07] MEDS: ACETAMINOPHEN 325 MG TABLET (FP) PO PRN (17:10)
[2020-10-07] MEDS: traZODone HCL 50 MG TABLET (FP) PO SCH (22:47)
[2020-10-07] MEDS: THIAMINE HCL 100 MG TABLET (FP) PO SCH (22:47)
[2020-10-07] MEDS: MELATONIN 5 MG TABLETS PO SCH (22:48)
[2020-10-08] MEDS ORDERED: METHADONE HCL 10 MG TABLET ONE (04:07)
[2020-10-08] MEDS ORDERED: METHADONE HCL 40 MG DISPERSABLE TABLET ONE (04:07)
[2020-10-08] MEDS ORDERED: chlordiazePOXIDE HCL 10 MG CAPSULE PO SCH (05:00)
[2020-10-08 06:45] VITALS: TEMP 96.8
[2020-10-08] MEDS: CEPHALEXIN MONOHYDRATE 500 MG CAPSULE (UD) PO SCH (06:46)
[2020-10-08] MEDS: METHADONE 40 MG, METHADONE 30 MG PO SCH (06:46)
[2020-10-08 09:13] VITALS: BP 137/83; PULSE 61
[2020-10-08] MEDS ORDERED: LOSARTAN POTASSIUM 50 MG TABLET PO SCH (10:00)
[2020-10-08] MEDS: PRENATAL VITAMINS W/ FOLIC ACID TABLET (FP) PO SCH (10:15)
[2020-10-08] MEDS: BACITRACIN 15 GM TUBE TOPICAL OINTMENT TP SCH (10:15)
[2020-10-08] MEDS: NICOTINE 21 MG/24 HOURS TOPICAL PATCH TD SCH (10:15)
[2020-10-09] MEDS ORDERED: chlordiazePOXIDE HCL 10 MG CAPSULE PO ONE (05:00)
== END 2020-10-08 11:02 | disposition home or self-care (01) | DRG 773 ==
LOC: YASAS 15:33 → Y3N 21:17
PROVIDERS: ADMIT Allergy & Immunology; ATTEND Allergy & Immunology
PROC: HZ2ZZZZ Detoxification Services for Substance Abuse Treatment (ICD-10-PCS; principal; 2020-10-04)
DX: F10.230 Alcohol dependence with withdrawal, uncomplicated (principal); F11.20 Opioid dependence, uncomplicated; F14.20 Cocaine dependence, uncomplicated; F17.210 Nicotine dependence, cigarettes, uncomplicated; F19.24 Other psychoactive substance dependence with psychoactive substance-induced mood disorder; F32.9 Major depressive disorder, single episode, unspecified; F42.4 Excoriation (skin-picking) disorder; U07.1 COVID-19; E88.09 Other disorders of plasma-protein metabolism, not elsewhere classified; I10 Essential (primary) hypertension; J44.9 Chronic obstructive pulmonary disease, unspecified; G47.00 Insomnia, unspecified; R01.1 Cardiac murmur, unspecified; R94.31 Abnormal electrocardiogram [ECG] [EKG]; Z86.79 Personal history of other diseases of the circulatory system; Z98.890 Other specified postprocedural states; Z91.19 Patient's noncompliance with other medical treatment and regimen; Z56.0 Unemployment, unspecified; Z59.0 Homelessness
CPT/HCPCS: 36415; 80053; 81003; 85027; 86780; 93005; 93010; C9803; U0003

== ENCOUNTER 2021-03-21 15:28 | Inpatient (IN) | payer OTHER ==
[2021-03-21 17:51] VITALS: BMI 28.5
[2021-03-21] MEDS ORDERED: MENTHOL/PHENOL 1 EACH UD MM PRN (19:11)
[2021-03-21] MEDS ORDERED: MAG HYDROX/AL HYDROX/SIMETH 30 ML UNIT-DOSE CUP PO PRN (19:11)
[2021-03-21] MEDS ORDERED: ONDANSETRON *ODT* 4 MG TABLET SL PRN (19:11)
[2021-03-21] MEDS ORDERED: BISMUTH SUBSALICYLATE 524 MG/30 ML PO PRN (19:11)
[2021-03-21] MEDS ORDERED: NICOTINE POLACRILEX 2 MG GUM BUC PRN (19:11)
[2021-03-21] MEDS ORDERED: ACETAMINOPHEN 325 MG TABLET (FP) PO PRN ×2 (19:11)
[2021-03-21] MEDS ORDERED: MAGNESIUM HYDROX 2400MG/30ML ORAL SUSPENSION 30 ML CUP PO PRN (19:11)
[2021-03-21] MEDS ORDERED: IBUPROFEN 400 MG TABLET (FP) PO PRN (19:11)
[2021-03-21] MEDS ORDERED: MAGNESIUM CITRATE 300 ML BOTTLE PO PRN (19:11)
[2021-03-21] MEDS: diazePAM 5 MG TABLET PO PRN (21:19)
[2021-03-21] MEDS: THIAMINE HCL 100 MG TABLET (FP) PO SCH (21:20)
[2021-03-21] MEDS: METHOCARBAMOL 500 MG TABLET PO PRN (21:20)
[2021-03-21] MEDS: hydrOXYzine PAMOATE 25 MG CAPSULE (FP) PO SCH (21:20)
[2021-03-21] MEDS: MELATONIN 5 MG TABLETS PO SCH (21:20)
[2021-03-21] MEDS: diazePAM 5 MG TABLET PO SCH (22:50)
[2021-03-22] MEDS: diazePAM 5 MG TABLET PO SCH ×4 (05:56→22:18)
[2021-03-22] MEDS: hydrOXYzine PAMOATE 25 MG CAPSULE (FP) PO SCH ×5 (05:57→22:18)
[2021-03-22 09:59] LABS: HEMATOCRIT 40.7 % (35.4-49); HEMOGLOBIN 13.7 GM/dL (11.7-16.9); MCH 31.7 pg (25.7-33.7); MCHC 33.6 g/dl (32.0-35.9); MEAN CELL VOLUME 94.3 fl (80-96); MEAN PLT VOLUME 7.4 fl (7.5-11.1); PLATELET COUNT 281 10^3/uL (134-434); RBC 4.31 M/mm3 (4.00-5.60); WHITE BLOOD COUNT 8.1 K/mm3 (4.0-10.0)
[2021-03-22 10:16] LABS: CALCIUM 8.8 mg/dL (8.5-10.1)
[2021-03-22 10:17] LABS: ALBUMIN 3.6 g/dl (3.4-5.0)
[2021-03-22 10:20] LABS: CREATININE 1.1 mg/dL (0.55-1.3)
[2021-03-22 10:21] LABS: BILIRUBIN,TOTAL 0.4 mg/dL (0.2-1)
[2021-03-22 10:22] LABS: TOT PROT 8.3 g/dl (6.4-8.2)
[2021-03-22] MEDS: PRENATAL VITAMINS W/ FOLIC ACID TABLET (FP) PO SCH (10:31)
[2021-03-22] MEDS: LOSARTAN POTASSIUM 50 MG TABLET PO SCH (10:31)
[2021-03-22] MEDS: BACITRACIN 0.9 GM PACKET TP SCH (10:31)
[2021-03-22] MEDS ORDERED: methaDONE HCL 10 MG TABLET PO SCH (11:00)
[2021-03-22] MEDS ORDERED: methaDONE HCL 10 MG TABLET ONE (12:37)
[2021-03-22] MEDS ORDERED: methaDONE HCL 40 MG DISPERSABLE TABLET ONE (12:37)
[2021-03-22] MEDS: methaDONE 80 MG, methaDONE 20 MG PO SCH (12:42)
[2021-03-22] MEDS: diazePAM 5 MG TABLET PO PRN (14:28)
[2021-03-22] MEDS ORDERED: MASKS NR ONE (17:15)
[2021-03-22] MEDS ORDERED: traZODone HCL 150 MG TABLET PO SCH (22:00)
[2021-03-22] MEDS: traZODone HCL 50 MG TABLET (FP) PO SCH (22:18)
[2021-03-22] MEDS: THIAMINE HCL 100 MG TABLET (FP) PO SCH (22:18)
[2021-03-22] MEDS: MELATONIN 5 MG TABLETS PO SCH (22:19)
[2021-03-23] MEDS ORDERED: methaDONE HCL 10 MG TABLET ONE (04:25)
[2021-03-23] MEDS ORDERED: methaDONE HCL 40 MG DISPERSABLE TABLET ONE (04:25)
[2021-03-23] MEDS: methaDONE 80 MG, methaDONE 20 MG PO SCH (05:25)
[2021-03-23] MEDS: hydrOXYzine PAMOATE 25 MG CAPSULE (FP) PO SCH ×6 (05:25→22:16)
[2021-03-23] MEDS: diazePAM 5 MG TABLET PO SCH ×4 (05:26→22:14)
[2021-03-23] MEDS: PRENATAL VITAMINS W/ FOLIC ACID TABLET (FP) PO SCH (10:07)
[2021-03-23] MEDS: BACITRACIN 0.9 GM PACKET TP SCH (10:07)
[2021-03-23] MEDS: diazePAM 5 MG TABLET PO PRN ×2 (10:08→18:02)
[2021-03-23] MEDS: LOSARTAN POTASSIUM 50 MG TABLET PO SCH (10:08)
[2021-03-23] MEDS: SALICYLIC ACID/SULFUR 1 APPLIC SHAMPOO.G. TP SCH (18:05)
[2021-03-23] MEDS: THIAMINE HCL 100 MG TABLET (FP) PO SCH (22:13)
[2021-03-23] MEDS: traZODone HCL 50 MG TABLET (FP) PO SCH (22:13)
[2021-03-23] MEDS: MELATONIN 5 MG TABLETS PO SCH (22:15)
[2021-03-23] MEDS: METHOCARBAMOL 500 MG TABLET PO PRN (22:17)
[2021-03-24] MEDS ORDERED: methaDONE HCL 10 MG TABLET ONE (04:45)
[2021-03-24] MEDS ORDERED: methaDONE HCL 40 MG DISPERSABLE TABLET ONE (04:46)
[2021-03-24] MEDS: diazePAM 5 MG TABLET PO SCH ×2 (05:30→18:42)
[2021-03-24] MEDS: hydrOXYzine PAMOATE 25 MG CAPSULE (FP) PO SCH ×5 (05:31→21:55)
[2021-03-24] MEDS: methaDONE 80 MG, methaDONE 20 MG PO SCH (05:31)
[2021-03-24] MEDS: PRENATAL VITAMINS W/ FOLIC ACID TABLET (FP) PO SCH (10:09)
[2021-03-24] MEDS: LOSARTAN POTASSIUM 50 MG TABLET PO SCH (10:09)
[2021-03-24] MEDS: SALICYLIC ACID/SULFUR 1 APPLIC SHAMPOO.G. TP SCH (10:09)
[2021-03-24] MEDS: BACITRACIN 0.9 GM PACKET TP SCH (10:09)
[2021-03-24 10:46] LABS: CALCIUM 9.3 mg/dL (8.5-10.1)
[2021-03-24 10:50] LABS: CREATININE 0.9 mg/dL (0.55-1.3)
[2021-03-24] MEDS ORDERED: SODIUM POLYSTYRENE SULFONATE 15 GM/60 ML BOTTLE PO ONE (13:12)
[2021-03-24] MEDS: METHOCARBAMOL 500 MG TABLET PO PRN (14:57)
[2021-03-24] MEDS: MELATONIN 5 MG TABLETS PO SCH (21:55)
[2021-03-24] MEDS: THIAMINE HCL 100 MG TABLET (FP) PO SCH (21:55)
[2021-03-24] MEDS: traZODone HCL 50 MG TABLET (FP) PO SCH (21:55)
[2021-03-25] MEDS ORDERED: methaDONE HCL 40 MG DISPERSABLE TABLET ONE (04:14)
[2021-03-25] MEDS ORDERED: methaDONE HCL 10 MG TABLET ONE (04:14)
[2021-03-25] MEDS: methaDONE 80 MG, methaDONE 20 MG PO SCH (05:29)
[2021-03-25] MEDS: hydrOXYzine PAMOATE 25 MG CAPSULE (FP) PO SCH ×2 (05:29→09:31)
[2021-03-25] MEDS ORDERED: diazePAM 5 MG TABLET PO ONE (06:00)
[2021-03-25] MEDS: BACITRACIN 0.9 GM PACKET TP SCH (09:31)
[2021-03-25] MEDS: LOSARTAN POTASSIUM 50 MG TABLET PO SCH (09:31)
[2021-03-25] MEDS: PRENATAL VITAMINS W/ FOLIC ACID TABLET (FP) PO SCH (09:31)
[2021-03-25] MEDS: SALICYLIC ACID/SULFUR 1 APPLIC SHAMPOO.G. TP SCH (09:31)
[2021-03-25 09:40] VITALS: BP 148/81; PULSE 69; TEMP 96.9
== END 2021-03-25 09:23 | disposition home or self-care (01) | DRG 773 ==
LOC: YASAS 15:28 → Y3N 19:06
PROVIDERS: ADMIT Allergy & Immunology; ATTEND Allergy & Immunology
PROC: HZ2ZZZZ Detoxification Services for Substance Abuse Treatment (ICD-10-PCS; principal; 2021-03-21)
DX: F10.230 Alcohol dependence with withdrawal, uncomplicated (principal); F11.20 Opioid dependence, uncomplicated; F14.20 Cocaine dependence, uncomplicated; F17.210 Nicotine dependence, cigarettes, uncomplicated; F19.24 Other psychoactive substance dependence with psychoactive substance-induced mood disorder; F42.4 Excoriation (skin-picking) disorder; I10 Essential (primary) hypertension; E87.5 Hyperkalemia; J44.9 Chronic obstructive pulmonary disease, unspecified; L21.0 Seborrhea capitis; N28.9 Disorder of kidney and ureter, unspecified; Z86.59 Personal history of other mental and behavioral disorders; Z86.79 Personal history of other diseases of the circulatory system; Z86.19 Personal history of other infectious and parasitic diseases
CPT/HCPCS: 36415; 80048; 80053; 84132; 85027; 86780; 93005; 93010; C9803; U0003; U0005

== ENCOUNTER 2021-11-21 13:49 | Inpatient (IN) | payer OTHER ==
[2021-11-21 16:38] VITALS: BMI 27.8
[2021-11-21] MEDS ORDERED: IBUPROFEN 400 MG TABLET (FP) PO PRN (17:07)
[2021-11-21] MEDS ORDERED: BISMUTH SUBSALICYLATE 524 MG/30 ML PO PRN (17:07)
[2021-11-21] MEDS ORDERED: NALOXONE HCL 0.4 MG/ML VIAL IM PRN (17:07)
[2021-11-21] MEDS ORDERED: MENTHOL/PHENOL 1 EACH UD MM PRN (17:07)
[2021-11-21] MEDS ORDERED: ACETAMINOPHEN 325 MG TABLET (FP) PO PRN (17:07)
[2021-11-21] MEDS ORDERED: MAG HYDROX/AL HYDROX/SIMETH 30 ML UNIT-DOSE CUP PO PRN (17:07)
[2021-11-21] MEDS ORDERED: ONDANSETRON *ODT* 4 MG TABLET SL PRN (17:07)
[2021-11-21] MEDS ORDERED: MAGNESIUM CITRATE 300 ML BOTTLE PO PRN (17:07)
[2021-11-21] MEDS ORDERED: MAGNESIUM HYDROX 2400MG/30ML ORAL SUSPENSION 30 ML CUP PO PRN (17:07)
[2021-11-21] MEDS ORDERED: NICOTINE 10 MG CARTRIDGE (INHALER) IH PRN (17:07)
[2021-11-21] MEDS ORDERED: LOPERAMIDE HCL 2 MG CAPSULE PO PRN (17:07)
[2021-11-21] MEDS ORDERED: chlordiazePOXIDE HCL 25 MG CAPSULE PO PRN (17:07)
[2021-11-21] MEDS ORDERED: hydrOXYzine PAMOATE 25 MG CAPSULE (FP) PO SCH (18:00)
[2021-11-21] MEDS ORDERED: chlordiazePOXIDE HCL 25 MG CAPSULE PO ONE (18:34)
[2021-11-21] MEDS: hydrOXYzine PAMOATE 25 MG CAPSULE (FP) PO PRN ×2 (18:55→23:04)
[2021-11-21] MEDS: METHOCARBAMOL 500 MG TABLET PO PRN (18:55)
[2021-11-21] MEDS: chlordiazePOXIDE HCL 25 MG CAPSULE PO SCH ×2 (18:55→23:04)
[2021-11-21] MEDS: THIAMINE HCL 100 MG TABLET (FP) PO SCH (23:04)
[2021-11-21] MEDS: MELATONIN 5 MG TABLETS PO SCH (23:04)
[2021-11-22] MEDS: chlordiazePOXIDE HCL 25 MG CAPSULE PO SCH ×4 (05:02→22:12)
[2021-11-22] MEDS ORDERED: methaDONE HCL 10 MG TABLET PO SCH (09:45)
[2021-11-22] MEDS ORDERED: methaDONE HCL 10 MG TABLET ONE (10:50)
[2021-11-22] MEDS ORDERED: methaDONE HCL 40 MG DISPERSABLE TABLET ONE (10:50)
[2021-11-22] MEDS: PRENATAL VITAMINS W/ FOLIC ACID TABLET (FP) PO SCH (10:51)
[2021-11-22] MEDS: methaDONE 40 MG, methaDONE 20 MG PO SCH (10:51)
[2021-11-22] MEDS: hydrOXYzine PAMOATE 25 MG CAPSULE (FP) PO PRN (10:52)
[2021-11-22] MEDS: METHOCARBAMOL 500 MG TABLET PO PRN (10:52)
[2021-11-22 12:32] LABS: ALBUMIN 3.1 g/dl (3.4-5.0); CALCIUM 8.8 mg/dL (8.5-10.1)
[2021-11-22 12:34] LABS: BLOOD UREA NITROGEN 16.4 mg/dL (7-18)
[2021-11-22 12:35] LABS: CREATININE 0.7 mg/dL (0.55-1.3)
[2021-11-22 12:37] LABS: BILIRUBIN,TOTAL 0.6 mg/dL (0.2-1); HEMATOCRIT 40.6 % (35.4-49); HEMOGLOBIN 13.5 GM/dL (11.7-16.9); MCH 29.5 pg (25.7-33.7); MCHC 33.2 g/dl (32.0-35.9); MEAN PLT VOLUME 7.5 fl (7.5-11.1); PLATELET COUNT 224 10^3/uL (134-434); RBC 4.56 M/mm3 (4.00-5.60); RDW 15.9 % (11.9-15.9); TOT PROT 7.4 g/dl (6.4-8.2); WHITE BLOOD COUNT 7.5 K/mm3 (4.0-10.0)
[2021-11-22] MEDS: THIAMINE HCL 100 MG TABLET (FP) PO SCH (22:14)
[2021-11-22] MEDS: MELATONIN 5 MG TABLETS PO SCH (22:14)
[2021-11-23] MEDS: chlordiazePOXIDE HCL 25 MG CAPSULE PO SCH ×4 (06:01→22:31)
[2021-11-23] MEDS ORDERED: methaDONE HCL 40 MG DISPERSABLE TABLET ONE (06:04)
[2021-11-23] MEDS ORDERED: methaDONE HCL 10 MG TABLET ONE (06:04)
[2021-11-23] MEDS: methaDONE 40 MG, methaDONE 20 MG PO SCH (06:05)
[2021-11-23 10:06] LABS: SARS-CoV-2 NAA Not Detected (Not Detected)
[2021-11-23] MEDS: hydrOXYzine PAMOATE 25 MG CAPSULE (FP) PO PRN (10:45)
[2021-11-23] MEDS: PRENATAL VITAMINS W/ FOLIC ACID TABLET (FP) PO SCH (10:45)
[2021-11-23] MEDS: LOSARTAN POTASSIUM 50 MG TABLET PO SCH (17:11)
[2021-11-23] MEDS: THIAMINE HCL 100 MG TABLET (FP) PO SCH (22:31)
[2021-11-23] MEDS: MELATONIN 5 MG TABLETS PO SCH (22:33)
[2021-11-24] MEDS ORDERED: chlordiazePOXIDE HCL 10 MG CAPSULE PO PRN
[2021-11-24] MEDS ORDERED: methaDONE HCL 40 MG DISPERSABLE TABLET ONE (03:58)
[2021-11-24] MEDS ORDERED: methaDONE HCL 10 MG TABLET ONE (03:58)
[2021-11-24] MEDS: methaDONE 40 MG, methaDONE 20 MG PO SCH (06:00)
[2021-11-24] MEDS: chlordiazePOXIDE HCL 10 MG CAPSULE PO SCH ×4 (06:00→22:05)
[2021-11-24] MEDS: LOSARTAN POTASSIUM 50 MG TABLET PO SCH (10:47)
[2021-11-24] MEDS: PRENATAL VITAMINS W/ FOLIC ACID TABLET (FP) PO SCH (10:47)
[2021-11-24] MEDS: ACETAMINOPHEN 325 MG TABLET (FP) PO PRN (19:03)
[2021-11-24] MEDS: THIAMINE HCL 100 MG TABLET (FP) PO SCH (22:04)
[2021-11-24] MEDS: METHOCARBAMOL 500 MG TABLET PO PRN (22:04)
[2021-11-24] MEDS: MELATONIN 5 MG TABLETS PO SCH (22:06)
[2021-11-25] MEDS ORDERED: methaDONE HCL 10 MG TABLET ONE (04:13)
[2021-11-25] MEDS ORDERED: methaDONE HCL 40 MG DISPERSABLE TABLET ONE (04:14)
[2021-11-25] MEDS: methaDONE 40 MG, methaDONE 20 MG PO SCH (05:51)
[2021-11-25] MEDS: chlordiazePOXIDE HCL 10 MG CAPSULE PO SCH ×2 (05:54→17:46)
[2021-11-25] MEDS: PRENATAL VITAMINS W/ FOLIC ACID TABLET (FP) PO SCH (10:02)
[2021-11-25] MEDS: ACETAMINOPHEN 325 MG TABLET (FP) PO PRN ×2 (10:02→17:46)
[2021-11-25] MEDS: LOSARTAN POTASSIUM 50 MG TABLET PO SCH (10:02)
[2021-11-25] MEDS: guaiFENesin 600 MG TABLET.ER (FP) PO SCH ×3 (16:02→19:41)
[2021-11-25] MEDS ORDERED: BACITRACIN 0.9 GM PACKET TP SCH (22:00)
[2021-11-25] MEDS: METHOCARBAMOL 500 MG TABLET PO PRN (22:27)
[2021-11-25] MEDS: MELATONIN 5 MG TABLETS PO SCH (22:27)
[2021-11-25] MEDS: hydrOXYzine PAMOATE 25 MG CAPSULE (FP) PO PRN (22:27)
[2021-11-25] MEDS: THIAMINE HCL 100 MG TABLET (FP) PO SCH (22:27)
[2021-11-26] MEDS ORDERED: methaDONE HCL 10 MG TABLET ONE ×2 (04:43→04:47)
[2021-11-26] MEDS ORDERED: methaDONE HCL 40 MG DISPERSABLE TABLET ONE (04:48)
[2021-11-26] MEDS ORDERED: chlordiazePOXIDE HCL 10 MG CAPSULE PO ONE (05:00)
[2021-11-26] MEDS: methaDONE 40 MG, methaDONE 20 MG PO SCH (05:40)
[2021-11-26 06:58] VITALS: BP 119/77; PULSE 81; TEMP 96.9
[2021-11-26] MEDS: guaiFENesin 600 MG TABLET.ER (FP) PO SCH (07:05)
== END 2021-11-26 09:14 | disposition home or self-care (01) | DRG 773 ==
LOC: YASAS 13:49 → Y6N 18:01
PROVIDERS: ADMIT Allergy & Immunology; ATTEND Allergy & Immunology
PROC: HZ2ZZZZ Detoxification Services for Substance Abuse Treatment (ICD-10-PCS; principal; 2021-11-21)
DX: F10.230 Alcohol dependence with withdrawal, uncomplicated (principal); F11.20 Opioid dependence, uncomplicated; F14.20 Cocaine dependence, uncomplicated; F17.210 Nicotine dependence, cigarettes, uncomplicated; F42.4 Excoriation (skin-picking) disorder; F41.9 Anxiety disorder, unspecified; F32.A Depression, unspecified; F19.280 Other psychoactive substance dependence with psychoactive substance-induced anxiety disorder; I10 Essential (primary) hypertension; J44.9 Chronic obstructive pulmonary disease, unspecified; I83.93 Asymptomatic varicose veins of bilateral lower extremities; E66.9 Obesity, unspecified; Z68.27 Body mass index [BMI] 27.0-27.9, adult; Z91.19 Patient's noncompliance with other medical treatment and regimen; Z86.19 Personal history of other infectious and parasitic diseases; Z56.0 Unemployment, unspecified; Z59.00 Homelessness unspecified
CPT/HCPCS: 36415; 80053; 85027; 86780; 93005; 93010; C9803-CS; U0003; U0005

== ENCOUNTER 2021-12-17 15:18 | Inpatient (IN) | payer OTHER ==
[2021-12-17] MEDS ORDERED: NALOXONE HCL (KLOXXADO) 8 MG SPRAY NS PRN (16:23)
[2021-12-17] MEDS ORDERED: BISMUTH SUBSALICYLATE 524 MG/30 ML PO PRN (16:23)
[2021-12-17] MEDS ORDERED: LOPERAMIDE HCL 2 MG CAPSULE PO PRN (16:23)
[2021-12-17] MEDS ORDERED: BENZOCAINE/MENTHOL (CHLORASEPTIC ) LOZENGE MM PRN (16:23)
[2021-12-17] MEDS ORDERED: METHOCARBAMOL 500 MG TABLET PO PRN (16:23)
[2021-12-17] MEDS ORDERED: IBUPROFEN 400 MG TABLET (FP) PO PRN (16:23)
[2021-12-17] MEDS ORDERED: MAG HYDROX/AL HYDROX/SIMETH 30 ML UNIT-DOSE CUP PO PRN (16:23)
[2021-12-17] MEDS ORDERED: MAGNESIUM HYDROX 2400MG/30ML ORAL SUSPENSION 30 ML CUP PO PRN (16:23)
[2021-12-17] MEDS ORDERED: DICYCLOMINE HCL 10 MG CAPSULE PO PRN (16:23)
[2021-12-17] MEDS ORDERED: NICOTINE 10 MG CARTRIDGE (INHALER) IH PRN (16:23)
[2021-12-17] MEDS ORDERED: MAGNESIUM CITRATE 300 ML BOTTLE PO PRN (16:23)
[2021-12-17] MEDS ORDERED: ACETAMINOPHEN 325 MG TABLET (FP) PO PRN ×2 (16:23)
[2021-12-17] MEDS ORDERED: ONDANSETRON *ODT* 4 MG TABLET SL PRN (16:23)
[2021-12-17 18:05] VITALS: BMI 27.4
[2021-12-17] MEDS ORDERED: LOSARTAN POTASSIUM 50 MG TABLET PO ONE (18:41)
[2021-12-17] MEDS: PRENATAL VITAMINS W/ FOLIC ACID TABLET (FP) PO SCH (19:19)
[2021-12-17] MEDS: hydrOXYzine PAMOATE 25 MG CAPSULE (FP) PO SCH ×2 (19:20→22:11)
[2021-12-17] MEDS: diazePAM 5 MG TABLET PO PRN (19:21)
[2021-12-17] MEDS: MELATONIN 5 MG TABLETS PO SCH (22:08)
[2021-12-17] MEDS: THIAMINE HCL 100 MG TABLET (FP) PO SCH (22:11)
[2021-12-17] MEDS: diazePAM 5 MG TABLET PO SCH (22:12)
[2021-12-18] MEDS: hydrOXYzine PAMOATE 25 MG CAPSULE (FP) PO SCH ×5 (05:53→22:42)
[2021-12-18] MEDS: diazePAM 5 MG TABLET PO SCH ×4 (05:53→22:43)
[2021-12-18 09:50] LABS: HEMATOCRIT 40.9 % (35.4-49); HEMOGLOBIN 13.4 GM/dL (11.7-16.9); MCH 29.1 pg (25.7-33.7); MCHC 32.7 g/dl (32.0-35.9); MEAN CELL VOLUME 89.2 fl (80-96); MEAN PLT VOLUME 7.5 fl (7.5-11.1); PLATELET COUNT 203 10^3/uL (134-434); RBC 4.59 M/mm3 (4.00-5.60); RDW 17.3 % (11.9-15.9); WHITE BLOOD COUNT 7.4 K/mm3 (4.0-10.0)
[2021-12-18 10:05] LABS: CALCIUM 9.1 mg/dL (8.5-10.1)
[2021-12-18 10:06] LABS: BLOOD UREA NITROGEN 18.8 mg/dL (7-18)
[2021-12-18 10:09] LABS: CREATININE 1.1 mg/dL (0.55-1.3)
[2021-12-18 10:10] LABS: BILIRUBIN,TOTAL 1.1 mg/dL (0.2-1)
[2021-12-18 10:11] LABS: TOT PROT 7.4 g/dl (6.4-8.2)
[2021-12-18] MEDS: PRENATAL VITAMINS W/ FOLIC ACID TABLET (FP) PO SCH (10:43)
[2021-12-18] MEDS: LOSARTAN POTASSIUM 50 MG TABLET PO SCH (10:43)
[2021-12-18 12:09] LABS: SARS-CoV-2 NAA Not Detected (Not Detected)
[2021-12-18] MEDS ORDERED: methaDONE HCL 10 MG TABLET PO SCH (13:30)
[2021-12-18] MEDS ORDERED: methaDONE 40 MG, methaDONE 30 MG PO ONE (13:45)
[2021-12-18] MEDS ORDERED: methaDONE HCL 10 MG TABLET ONE (14:07)
[2021-12-18] MEDS ORDERED: methaDONE HCL 40 MG DISPERSABLE TABLET ONE (14:07)
[2021-12-18] MEDS ORDERED: cloNIDine HCL 0.1 MG TABLET PO ONE (14:25)
[2021-12-18] MEDS: MELATONIN 5 MG TABLETS PO SCH (22:42)
[2021-12-18] MEDS: THIAMINE HCL 100 MG TABLET (FP) PO SCH (22:42)
[2021-12-18] MEDS: traZODone HCL 50 MG TABLET (FP) PO SCH (22:43)
[2021-12-19] MEDS ORDERED: methaDONE HCL 10 MG TABLET ONE (04:21)
[2021-12-19] MEDS ORDERED: methaDONE HCL 40 MG DISPERSABLE TABLET ONE (04:21)
[2021-12-19] MEDS: methaDONE 40 MG, methaDONE 30 MG PO SCH (05:43)
[2021-12-19] MEDS: diazePAM 5 MG TABLET PO SCH ×3 (05:43→22:12)
[2021-12-19] MEDS: hydrOXYzine PAMOATE 25 MG CAPSULE (FP) PO SCH ×5 (05:44→22:12)
[2021-12-19] MEDS: LOSARTAN POTASSIUM 50 MG TABLET PO SCH (10:22)
[2021-12-19] MEDS: PRENATAL VITAMINS W/ FOLIC ACID TABLET (FP) PO SCH (10:22)
[2021-12-19] MEDS: diazePAM 5 MG TABLET PO PRN (10:22)
[2021-12-19] MEDS: THIAMINE HCL 100 MG TABLET (FP) PO SCH (22:11)
[2021-12-19] MEDS: traZODone HCL 50 MG TABLET (FP) PO SCH (22:11)
[2021-12-19] MEDS: MELATONIN 5 MG TABLETS PO SCH (22:11)
[2021-12-20] MEDS ORDERED: methaDONE HCL 40 MG DISPERSABLE TABLET ONE (05:01)
[2021-12-20] MEDS ORDERED: methaDONE HCL 10 MG TABLET ONE (05:01)
[2021-12-20] MEDS: methaDONE 40 MG, methaDONE 30 MG PO SCH (05:55)
[2021-12-20] MEDS: diazePAM 5 MG TABLET PO SCH ×2 (05:55→17:45)
[2021-12-20] MEDS: hydrOXYzine PAMOATE 25 MG CAPSULE (FP) PO SCH ×5 (05:55→22:23)
[2021-12-20] MEDS: LOSARTAN POTASSIUM 50 MG TABLET PO SCH (10:35)
[2021-12-20] MEDS: PRENATAL VITAMINS W/ FOLIC ACID TABLET (FP) PO SCH (10:36)
[2021-12-20] MEDS: diazePAM 5 MG TABLET PO PRN (10:36)
[2021-12-20] MEDS: THIAMINE HCL 100 MG TABLET (FP) PO SCH (22:23)
[2021-12-20] MEDS: traZODone HCL 50 MG TABLET (FP) PO SCH (22:23)
[2021-12-20] MEDS: MELATONIN 5 MG TABLETS PO SCH (22:23)
[2021-12-21] MEDS ORDERED: methaDONE HCL 10 MG TABLET ONE (04:39)
[2021-12-21] MEDS ORDERED: methaDONE HCL 40 MG DISPERSABLE TABLET ONE (04:40)
[2021-12-21] MEDS: hydrOXYzine PAMOATE 25 MG CAPSULE (FP) PO SCH (05:35)
[2021-12-21] MEDS: methaDONE 40 MG, methaDONE 30 MG PO SCH (05:36)
[2021-12-21] MEDS ORDERED: diazePAM 5 MG TABLET PO ONE (06:00)
[2021-12-21 09:14] VITALS: BP 142/89; PULSE 77; TEMP 97.5
== END 2021-12-21 09:30 | disposition other institution (70) | DRG 773 ==
LOC: YASAS 15:18 → Y3N 17:54
PROVIDERS: ADMIT Allergy & Immunology; ATTEND Allergy & Immunology
PROC: HZ2ZZZZ Detoxification Services for Substance Abuse Treatment (ICD-10-PCS; principal; 2021-12-17)
DX: F11.23 Opioid dependence with withdrawal (principal); F10.230 Alcohol dependence with withdrawal, uncomplicated; F14.20 Cocaine dependence, uncomplicated; F13.10 Sedative, hypnotic or anxiolytic abuse, uncomplicated; F17.210 Nicotine dependence, cigarettes, uncomplicated; F19.280 Other psychoactive substance dependence with psychoactive substance-induced anxiety disorder; F19.24 Other psychoactive substance dependence with psychoactive substance-induced mood disorder; F42.4 Excoriation (skin-picking) disorder; F41.9 Anxiety disorder, unspecified; I10 Essential (primary) hypertension; Z86.79 Personal history of other diseases of the circulatory system; Z86.16 Personal history of COVID-19; Z86.19 Personal history of other infectious and parasitic diseases; Z87.09 Personal history of other diseases of the respiratory system; Z59.00 Homelessness unspecified; Z91.19 Patient's noncompliance with other medical treatment and regimen
CPT/HCPCS: 36415; 80053; 85027; 86780; C9803-CS; J0735; U0003; U0005

== ENCOUNTER 2022-01-03 12:33 | Inpatient (IN) | payer OTHER ==
[2022-01-03 14:05] VITALS: BMI 27.3
[2022-01-03] MEDS ORDERED: ACETAMINOPHEN 325 MG TABLET (FP) PO PRN (14:43)
[2022-01-03] MEDS ORDERED: chlordiazePOXIDE HCL 25 MG CAPSULE PO ONE (14:43)
[2022-01-03] MEDS ORDERED: BISMUTH SUBSALICYLATE 524 MG/30 ML PO PRN (14:43)
[2022-01-03] MEDS ORDERED: MAG HYDROX/AL HYDROX/SIMETH 30 ML UNIT-DOSE CUP PO PRN (14:43)
[2022-01-03] MEDS ORDERED: BENZOCAINE/MENTHOL (CHLORASEPTIC ) LOZENGE MM PRN (14:43)
[2022-01-03] MEDS ORDERED: LOPERAMIDE HCL 2 MG CAPSULE PO PRN (14:43)
[2022-01-03] MEDS ORDERED: ONDANSETRON *ODT* 4 MG TABLET SL PRN (14:43)
[2022-01-03] MEDS ORDERED: chlordiazePOXIDE HCL 25 MG CAPSULE PO PRN (14:43)
[2022-01-03] MEDS ORDERED: DICYCLOMINE HCL 10 MG CAPSULE PO PRN (14:43)
[2022-01-03] MEDS ORDERED: NICOTINE 10 MG CARTRIDGE (INHALER) IH PRN (14:43)
[2022-01-03] MEDS ORDERED: IBUPROFEN 400 MG TABLET (FP) PO PRN (14:43)
[2022-01-03] MEDS ORDERED: MAGNESIUM HYDROX 2400MG/30ML ORAL SUSPENSION 30 ML CUP PO PRN (14:43)
[2022-01-03] MEDS ORDERED: MAGNESIUM CITRATE 300 ML BOTTLE PO PRN (14:43)
[2022-01-03] MEDS: chlordiazePOXIDE HCL 25 MG CAPSULE PO SCH ×2 (17:27→22:46)
[2022-01-03] MEDS: hydrOXYzine PAMOATE 25 MG CAPSULE (FP) PO SCH ×2 (17:27→22:45)
[2022-01-03] MEDS ORDERED: MELATONIN 5 MG TABLETS PO SCH (22:00)
[2022-01-03] MEDS: THIAMINE HCL 100 MG TABLET (FP) PO SCH (22:45)
[2022-01-03] MEDS: METHOCARBAMOL 500 MG TABLET PO PRN (22:46)
[2022-01-04] MEDS ORDERED: methaDONE HCL 10 MG TABLET ONE (04:09)
[2022-01-04] MEDS ORDERED: methaDONE HCL 40 MG DISPERSABLE TABLET ONE (04:10)
[2022-01-04] MEDS: chlordiazePOXIDE HCL 25 MG CAPSULE PO SCH ×4 (05:25→22:36)
[2022-01-04] MEDS: hydrOXYzine PAMOATE 25 MG CAPSULE (FP) PO SCH ×5 (05:25→22:35)
[2022-01-04] MEDS ORDERED: methaDONE 40 MG, methaDONE 30 MG PO ONE (06:00)
[2022-01-04] MEDS ORDERED: methaDONE HCL 10 MG TABLET PO ONE (06:00)
[2022-01-04] MEDS: PRENATAL VITAMINS W/ FOLIC ACID TABLET (FP) PO SCH (10:43)
[2022-01-04] MEDS: LOSARTAN POTASSIUM 50 MG TABLET PO SCH (15:03)
[2022-01-04] MEDS: METHOCARBAMOL 500 MG TABLET PO PRN (22:35)
[2022-01-04] MEDS: THIAMINE HCL 100 MG TABLET (FP) PO SCH (22:35)
[2022-01-04] MEDS: MELATONIN 5 MG TABLETS PO SCH (22:35)
[2022-01-05] MEDS: chlordiazePOXIDE HCL 25 MG CAPSULE PO SCH ×4 (05:02→22:10)
[2022-01-05] MEDS: hydrOXYzine PAMOATE 25 MG CAPSULE (FP) PO SCH ×5 (05:02→22:10)
[2022-01-05] MEDS: LOSARTAN POTASSIUM 50 MG TABLET PO SCH (10:08)
[2022-01-05] MEDS: PRENATAL VITAMINS W/ FOLIC ACID TABLET (FP) PO SCH (10:08)
[2022-01-05] MEDS ORDERED: methaDONE HCL 10 MG TABLET PO SCH (10:30)
[2022-01-05] MEDS ORDERED: methaDONE HCL 10 MG TABLET ONE (10:54)
[2022-01-05] MEDS ORDERED: methaDONE HCL 40 MG DISPERSABLE TABLET ONE (10:55)
[2022-01-05] MEDS: methaDONE 40 MG, methaDONE 30 MG PO SCH (10:58)
[2022-01-05 11:08] LABS: HEMATOCRIT 43.5 % (35.4-49); HEMOGLOBIN 14.4 GM/dL (11.7-16.9); MCH 29.3 pg (25.7-33.7); MCHC 33.2 g/dl (32.0-35.9); MEAN CELL VOLUME 88.2 fl (80-96); MEAN PLT VOLUME 7.5 fl (7.5-11.1); PLATELET COUNT 205 10^3/uL (134-434); RBC 4.93 M/mm3 (4.00-5.60); RDW 17.1 % (11.9-15.9)
[2022-01-05 11:19] LABS: CALCIUM 9.5 mg/dL (8.5-10.1)
[2022-01-05 11:20] LABS: ALBUMIN 3.3 g/dl (3.4-5.0); BLOOD UREA NITROGEN 16.7 mg/dL (7-18)
[2022-01-05 11:23] LABS: CREATININE 0.9 mg/dL (0.55-1.3)
[2022-01-05 11:25] LABS: BILIRUBIN,TOTAL 0.6 mg/dL (0.2-1); TOT PROT 7.8 g/dl (6.4-8.2)
[2022-01-05] MEDS: THIAMINE HCL 100 MG TABLET (FP) PO SCH (22:09)
[2022-01-05] MEDS: MELATONIN 5 MG TABLETS PO SCH (22:09)
[2022-01-05] MEDS: ACETAMINOPHEN 325 MG TABLET (FP) PO PRN (22:12)
[2022-01-06] MEDS ORDERED: chlordiazePOXIDE HCL 10 MG CAPSULE PO PRN
[2022-01-06] MEDS ORDERED: methaDONE HCL 40 MG DISPERSABLE TABLET ONE (04:59)
[2022-01-06] MEDS ORDERED: methaDONE HCL 10 MG TABLET ONE (04:59)
[2022-01-06] MEDS: hydrOXYzine PAMOATE 25 MG CAPSULE (FP) PO SCH ×5 (05:40→22:04)
[2022-01-06] MEDS: methaDONE 40 MG, methaDONE 30 MG PO SCH (05:40)
[2022-01-06] MEDS: chlordiazePOXIDE HCL 10 MG CAPSULE PO SCH ×4 (05:40→22:04)
[2022-01-06] MEDS: PRENATAL VITAMINS W/ FOLIC ACID TABLET (FP) PO SCH (10:08)
[2022-01-06] MEDS: LOSARTAN POTASSIUM 50 MG TABLET PO SCH (10:09)
[2022-01-06 16:17] LABS: SARS-CoV-2 NAA Not Detected (Not Detected)
[2022-01-06] MEDS: THIAMINE HCL 100 MG TABLET (FP) PO SCH (22:04)
[2022-01-06] MEDS: MELATONIN 5 MG TABLETS PO SCH (22:04)
[2022-01-07] MEDS ORDERED: methaDONE HCL 10 MG TABLET ONE (03:55)
[2022-01-07] MEDS ORDERED: methaDONE HCL 40 MG DISPERSABLE TABLET ONE (03:56)
[2022-01-07] MEDS: methaDONE 40 MG, methaDONE 30 MG PO SCH (05:01)
[2022-01-07] MEDS: chlordiazePOXIDE HCL 10 MG CAPSULE PO SCH ×2 (05:02→18:05)
[2022-01-07] MEDS: hydrOXYzine PAMOATE 25 MG CAPSULE (FP) PO SCH ×5 (05:02→23:35)
[2022-01-07] MEDS: LOSARTAN POTASSIUM 50 MG TABLET PO SCH (10:11)
[2022-01-07] MEDS: ACETAMINOPHEN 325 MG TABLET (FP) PO PRN (10:11)
[2022-01-07] MEDS: PRENATAL VITAMINS W/ FOLIC ACID TABLET (FP) PO SCH (10:11)
[2022-01-07] MEDS: MELATONIN 5 MG TABLETS PO SCH (23:35)
[2022-01-07] MEDS: THIAMINE HCL 100 MG TABLET (FP) PO SCH (23:35)
[2022-01-07] MEDS ORDERED: chlordiazePOXIDE HCL 10 MG CAPSULE PO ONE (23:39)
[2022-01-08] MEDS ORDERED: chlordiazePOXIDE HCL 10 MG CAPSULE PO ONE (05:00)
[2022-01-08] MEDS ORDERED: methaDONE HCL 40 MG DISPERSABLE TABLET ONE (05:20)
[2022-01-08] MEDS: hydrOXYzine PAMOATE 25 MG CAPSULE (FP) PO SCH (05:20)
[2022-01-08] MEDS ORDERED: methaDONE HCL 10 MG TABLET ONE (05:20)
[2022-01-08] MEDS: methaDONE 40 MG, methaDONE 30 MG PO SCH (05:21)
[2022-01-08 09:49] VITALS: BP 143/84; PULSE 83; TEMP 98.6
== END 2022-01-08 09:48 | disposition home or self-care (01) | DRG 773 ==
LOC: YASAS 12:33 → Y3N 15:42
PROVIDERS: ADMIT Allergy & Immunology; ATTEND Allergy & Immunology
PROC: HZ2ZZZZ Detoxification Services for Substance Abuse Treatment (ICD-10-PCS; principal; 2022-01-03)
DX: F10.230 Alcohol dependence with withdrawal, uncomplicated (principal); F11.20 Opioid dependence, uncomplicated; F13.20 Sedative, hypnotic or anxiolytic dependence, uncomplicated; F17.210 Nicotine dependence, cigarettes, uncomplicated; F19.282 Other psychoactive substance dependence with psychoactive substance-induced sleep disorder; F19.280 Other psychoactive substance dependence with psychoactive substance-induced anxiety disorder; F41.9 Anxiety disorder, unspecified; F32.A Depression, unspecified; I10 Essential (primary) hypertension; J44.9 Chronic obstructive pulmonary disease, unspecified; Z86.19 Personal history of other infectious and parasitic diseases; Z86.16 Personal history of COVID-19; Z56.0 Unemployment, unspecified; Z59.01 Sheltered homelessness
CPT/HCPCS: 36415; 80053; 85027; 86780; 87811; 93005; 93010; C9803-CS; U0003; U0005

== ENCOUNTER 2022-02-02 17:33 | Inpatient (IN) | payer OTHER ==
[2022-02-02] MEDS ORDERED: MAG HYDROX/AL HYDROX/SIMETH 30 ML UNIT-DOSE CUP PO PRN (19:18)
[2022-02-02] MEDS ORDERED: ACETAMINOPHEN 325 MG TABLET (FP) PO PRN ×2 (19:18)
[2022-02-02] MEDS ORDERED: ONDANSETRON *ODT* 4 MG TABLET SL PRN (19:18)
[2022-02-02] MEDS ORDERED: P-EPHED 60MG/TRIPROLIDI 2.5MG TABLET PO PRN (19:18)
[2022-02-02] MEDS ORDERED: IBUPROFEN 600 MG TABLET (FP) PO PRN (19:18)
[2022-02-02] MEDS ORDERED: MAGNESIUM CITRATE 300 ML BOTTLE PO PRN (19:18)
[2022-02-02] MEDS ORDERED: MELATONIN 5 MG TABLETS PO PRN (19:18)
[2022-02-02] MEDS ORDERED: DICYCLOMINE HCL 10 MG CAPSULE PO PRN (19:18)
[2022-02-02] MEDS ORDERED: MAGNESIUM HYDROX 2400MG/30ML ORAL SUSPENSION 30 ML CUP PO PRN (19:18)
[2022-02-02] MEDS ORDERED: BISMUTH SUBSALICYLATE 524 MG/30 ML PO PRN (19:18)
[2022-02-02] MEDS ORDERED: IBUPROFEN 400 MG TABLET (FP) PO PRN (19:18)
[2022-02-02] MEDS ORDERED: BENZOCAINE/MENTHOL (CHLORASEPTIC ) LOZENGE MM PRN (19:18)
[2022-02-02] MEDS ORDERED: LOPERAMIDE HCL 2 MG CAPSULE PO PRN (19:18)
[2022-02-02] MEDS ORDERED: chlordiazePOXIDE HCL 25 MG CAPSULE PO PRN (19:21)
[2022-02-02] MEDS ORDERED: LOSARTAN POTASSIUM 50 MG TABLET PO SCH (19:30)
[2022-02-02] MEDS ORDERED: chlordiazePOXIDE HCL 25 MG CAPSULE PO ONE (20:09)
[2022-02-02] MEDS ORDERED: methaDONE HCL 10 MG TABLET (FOR DETOX USE ONLY) PO ONE (22:40)
[2022-02-02 23:31] VITALS: BMI 27.1
[2022-02-03] MEDS ORDERED: methaDONE HCL 10 MG TABLET (FOR DETOX USE ONLY) PO ONE ×5 (00:05→10:00)
[2022-02-03] MEDS: THIAMINE HCL 100 MG TABLET (FP) PO SCH ×2 (01:02→22:06)
[2022-02-03] MEDS: cloNIDine HCL 0.1 MG TABLET PO PRN ×3 (01:03→22:10)
[2022-02-03] MEDS: BACITRACIN 0.9 GM PACKET TP SCH ×3 (01:03→23:49)
[2022-02-03] MEDS: chlordiazePOXIDE HCL 25 MG CAPSULE PO SCH ×5 (01:04→22:07)
[2022-02-03] MEDS: METHOCARBAMOL 500 MG TABLET PO PRN ×2 (05:31→17:09)
[2022-02-03] MEDS ORDERED: NALOXONE HCL (KLOXXADO) 8 MG SPRAY NS SCH (08:00)
[2022-02-03] MEDS: hydrOXYzine PAMOATE 25 MG CAPSULE (FP) PO PRN ×2 (10:11→22:06)
[2022-02-03] MEDS: PRENATAL VITAMINS W/ FOLIC ACID TABLET (FP) PO SCH (10:11)
[2022-02-03] MEDS: LOSARTAN POTASSIUM 50 MG TABLET PO SCH (10:17)
[2022-02-03] MEDS ORDERED: NALOXONE HCL (KLOXXADO) 8 MG SPRAY NS PRN ×2 (13:13→13:17)
[2022-02-03 14:25] LABS: HEMATOCRIT 41.2 % (35.4-49); HEMOGLOBIN 13.9 GM/dL (11.7-16.9); MCH 30.3 pg (25.7-33.7); MCHC 33.8 g/dl (32.0-35.9); MEAN CELL VOLUME 89.4 fl (80-96); MEAN PLT VOLUME 7.1 fl (7.5-11.1); PLATELET COUNT 197 10^3/uL (134-434); RBC 4.61 M/mm3 (4.00-5.60); RDW 17.8 % (11.9-15.9); WHITE BLOOD COUNT 7.4 K/mm3 (4.0-10.0)
[2022-02-03 14:28] LABS: CALCIUM 9.5 mg/dL (8.5-10.1)
[2022-02-03 14:29] LABS: ALBUMIN 3.6 g/dl (3.4-5.0); BLOOD UREA NITROGEN 15.5 mg/dL (7-18)
[2022-02-03 14:32] LABS: CREATININE 0.8 mg/dL (0.55-1.3)
[2022-02-03 14:34] LABS: BILIRUBIN,TOTAL 1.4 mg/dL (0.2-1); TOT PROT 7.9 g/dl (6.4-8.2)
[2022-02-03] MEDS ORDERED: MELATONIN 5 MG TABLETS PO SCH (22:00)
[2022-02-04] MEDS: chlordiazePOXIDE HCL 25 MG CAPSULE PO SCH ×2 (04:55→10:18)
[2022-02-04] MEDS: cloNIDine HCL 0.1 MG TABLET PO PRN ×2 (04:55→10:18)
[2022-02-04] MEDS ORDERED: methaDONE HCL 10 MG TABLET (FOR DETOX USE ONLY) ONE (08:53)
[2022-02-04] MEDS: METHOCARBAMOL 500 MG TABLET PO PRN (09:03)
[2022-02-04] MEDS: LOSARTAN POTASSIUM 50 MG TABLET PO SCH (09:03)
[2022-02-04] MEDS: BACITRACIN 0.9 GM PACKET TP SCH (09:04)
[2022-02-04] MEDS ORDERED: methaDONE HCL 10 MG TABLET (FOR DETOX USE ONLY) PO ONE (10:00)
[2022-02-04] MEDS: PRENATAL VITAMINS W/ FOLIC ACID TABLET (FP) PO SCH (10:18)
[2022-02-04] MEDS: hydrOXYzine PAMOATE 25 MG CAPSULE (FP) PO PRN (12:00)
[2022-02-04 13:31] VITALS: BP 130/79; PULSE 72; TEMP 96.8
[2022-02-05] MEDS ORDERED: chlordiazePOXIDE HCL 10 MG CAPSULE PO PRN
[2022-02-05] MEDS ORDERED: chlordiazePOXIDE HCL 10 MG CAPSULE PO SCH (05:00)
[2022-02-05] MEDS ORDERED: methaDONE HCL 10 MG TABLET (FOR DETOX USE ONLY) PO ONE (10:00)
[2022-02-06] MEDS ORDERED: chlordiazePOXIDE HCL 10 MG CAPSULE PO SCH (05:00)
[2022-02-06] MEDS ORDERED: methaDONE HCL 10 MG TABLET (FOR DETOX USE ONLY) PO ONE (10:00)
[2022-02-07] MEDS ORDERED: chlordiazePOXIDE HCL 10 MG CAPSULE PO ONE (05:00)
[2022-02-07] MEDS ORDERED: methaDONE HCL 10 MG TABLET (FOR DETOX USE ONLY) PO ONE ×2 (10:00)
== END 2022-02-04 15:45 | disposition left against medical advice (07) | DRG 770 ==
LOC: YASAS 17:33 → Y6N 23:39
PROVIDERS: ADMIT Allergy & Immunology; ATTEND Surgery
PROC: HZ2ZZZZ Detoxification Services for Substance Abuse Treatment (ICD-10-PCS; principal; 2022-02-02)
DX: F11.23 Opioid dependence with withdrawal (principal); F10.230 Alcohol dependence with withdrawal, uncomplicated; F13.230 Sedative, hypnotic or anxiolytic dependence with withdrawal, uncomplicated; F14.20 Cocaine dependence, uncomplicated; F17.210 Nicotine dependence, cigarettes, uncomplicated; F32.A Depression, unspecified; F19.24 Other psychoactive substance dependence with psychoactive substance-induced mood disorder; F19.282 Other psychoactive substance dependence with psychoactive substance-induced sleep disorder; F19.280 Other psychoactive substance dependence with psychoactive substance-induced anxiety disorder; I10 Essential (primary) hypertension; B18.2 Chronic viral hepatitis C; R01.1 Cardiac murmur, unspecified; R00.0 Tachycardia, unspecified; J44.9 Chronic obstructive pulmonary disease, unspecified; Z86.16 Personal history of COVID-19; Z56.0 Unemployment, unspecified; Z59.00 Homelessness unspecified
CPT/HCPCS: 36415; 80053; 85027; 86780; C9803-CS; J0735; U0003; U0005